=== PATIENT | male | born 1960 | race Caucasian/White ===

== ENCOUNTER → 2022-01-22 08:43 | Outpatient (CLI) | payer OTHER, SELFPAY ==
[2022-01-21 18:26] LABS: Basophils # 0.1 K/mm3 (0-0.2); Basophils % 0.9 % (0.1-2.0); Eosinophils # 0.2 K/mm3 (0.0-0.4); Eosinophils % 1.5 % (0.1-12.0); Hematocrit 41.7 % (42.0-52.0); Hemoglobin 13.5 g/dL (14.1-18.0); Lymphocytes # 1.6 K/mm3 (0.7-4.5); Lymphocytes % 13.9 % (10-50); Mean Corpuscular HGB Conc 32.5 g/dL (31.8-35.4); Mean Corpuscular Hemoglobin 31.5 pg (27.0-31.2); Mean Corpuscular Volume 97.1 fl (80-94); Mean Platelet Volume 9.1 fl (7.4-10.4); Monocytes # 0.9 K/mm3 (0.1-1.0); Neutrophils # 8.6 K/mm3 (1.8-7.8); Neutrophils % 75.7 % (37.0-80.0); Platelet Count 308 K/mm3 (142-424); Red Cell Distribution Width 13.5 % (11.5-17.5); White Blood Count 11.4 K/mm3 (4.8-10.8)
[2022-01-21 18:35] LABS: Chloride 103 mmol/L (98-107); Sodium 140 mmol/L (136-145)
[2022-01-21 18:37] LABS: Blood Urea Nitrogen 16 mg/dl (9-20); Estimated Glomerular Filt Rate 61 ml/min (>60); GFR (African American) 74 ML/MIN (>60); Potassium 4.6 mmoL/L (3.5-5.1)
[2022-01-21 18:38] LABS: Alanine Aminotransferase 21 U/L (12-78); Albumin Level 4.2 g/dl (3.5-5.0); Albumin/Globulin Ratio 1.7 (1.1-1.8); Alkaline Phosphatase 67 U/L (38-126); Anion Gap 11.6 mEq/L (5-15); Aspartate Amino Transferase 31 U/L (17-59); Bilirubin,Total 0.6 mg/dl (0.2-1.3); Carbon Dioxide 30 mmol/L (22.0-30.0); Globulin 2.5 g/dL (1.3-3.2); Total Protein,Serum 6.7 g/dl (6.3-8.2)
[2022-01-21 18:40] LABS: Calcium 9.7 mg/dl (8.4-10.2); Glucose 73 mg/dl (74-100)
== END ==
PROVIDERS: PCP Family Medicine; Visit Provider Family Medicine
DX: H65.02 Acute serous otitis media, left ear (principal)
CPT/HCPCS: 80053; 85025

== ENCOUNTER 2025-05-19 16:35 | Outpatient (CLI) | payer MEDICARE, OTHER, SELFPAY ==
--- OUTSIDE RECORDS SUMMARY | 2025-05-19 16:39 | XMS_ITS | Clinical Summary ---
Author Organization [facility] [place] Address [address] [facility] [address] [place] [address] Phone Care Team Providers Care Housing Case Manager Name Role Phone Carly Tomas Primary Care Provider [phone] Medications sodium,potassiu m,mag sulfates 17.5-3.13-1.6 gram Oral Recon Soln Take 6 oz by mouth 2 times daily. SUPREP Take as prescribed by doctor's office. 354 mL Active Social History Tobacco Use Types Packs/Day Years Used Date Smoking Tobacco: Never Assessed Sex and Gender Information Value Date Recorded Sex Assigned at Not on file Legal Sex Male 4:25 AM EDT Gender Identity Not on file Sexual Orientation Not on file Plan of Treatment Health Maintenance Due Date Last Done Comments Annual Wellness Exam 1961 Hepatitis C Screening 01/28/1976 DTaP/TDaP/Td (1 - Tdap) 1977 Cologuard 2003 FIT 2003 Sigmoidoscopy 2003 Virtual Colonography 2003 Pneumococcal Vaccine 50+ (1 of 1 - PCV) 01/28/2008 Zoster (1 of 2) 01/28/2008 Colon Cancer Screening 05/07/2024 Colonoscopy 05/07/2024 05/07/2021, 11/09/2015 COVID-19 Vaccine (3 - 2024-2 6 season) 2025 10/22/2020, 09/23/2020 Influenza Vaccine (#1) 2025 Hepatitis B Vaccine Aged Out No longe r eligible based on patient's age to complete this topic Meningococcal B Vaccine Aged Out No l onger eligible based on patient's age to complete this topic Procedures Procedure Name Priority Date/Time Associated Diagnosis Comments GMED COLONOSCOPY Routine 05/07/2021 7:00 AM EDT from Last 3 Months or Most Recently Relevant to Health Maintenance Results * GMED COLONOSCOPY (05/07/2021 7:00 AM EDT) 05/07/2021 7:00 AM EDT Impressions [facility] - 05/07/2021 7:37 AM EDT Polyp (10 mm) in the cecum. (Polypectomy). Polyp (8 mm) in the transverse colon. (Polypectomy). Polyp (4 mm) in the sigmoid colon. (Polypectomy). Mild diverticulosis of the sigmoid colon. Internal hemorrhoids. Plan: Await pathology results Colonoscopy in 3 or 5 years depending on pathology results. Educational Handout: Diverticulosis Patient to follow-up with Primary Care Physician and/or Referring Physician This section is an excerpt of the full report. us Petty Lanza MD GI PROCEDURE ORDERAB LES Final Result Performing Organization Address City/State/[facility] Co de Phone Number [facility] [address] [place] [address] from Last 3 Months or Most Recently Relevant to Health Maintenance Insurance PPO RICHARD PPO Care Teams Housing Case Manager Relationship Specialty Start Date End Date Carly Tomas [address] [facility] [address] [place] [address] PCP - General Family Medicine 11/09/15
--- OUTSIDE RECORDS SUMMARY | 2025-05-19 16:39 | XMS_ITS | Encounter Summary ---
Author Organization [place] [address] Care Team Providers Care Batter Out Name Role Phone Carly Tomas Primary Care Provider [phone] Encounter Details Date Type Department Care Team (Late st Contact Info) Description 05/07/2021 Orders Only SEP Gastro [facility] [address] [facility] [address] [place] [address] Petty Lanza MD [address] [place] [id number] Social History Tobacco Use Types Packs/Day Years Used Date Smoking Tobacco: Never Assessed Sex and Gender Information Value Date Recorded Sex Assigned at Not on file Legal Sex Male 4:25 AM EDT Gender Identity Not on file Sexual Orientation Not on file documented as of this encounter Plan of Treatment Not on file documented as of this encounter Procedures Procedure Name Priority Date/Time Associated Diagnosis Comments GMED COLONOSCOPY Routine 05/07/2021 7:00 AM EDT documented in this encounter Results * GMED COLONOSCOPY (05/07/2021 7:00 AM EDT) 05/07/2021 7:00 AM EDT Impressions [facility] - 05/07/2021 7:37 AM EDT [...] ORDERAB LES Final Result Performing Organization Address City/State/[facility] Co de Phone Number [facility] 1 [place] [address] documented in this encounter Visit Diagnoses Not on filedocumented in this encounter Care Teams Batter Out Relationship Specialty Start Date End Date Carly Tomas [address] [facility] [address] [place] [address] PCP - General Family Medicine 11/09/15 documented as of this encounter
--- OUTSIDE RECORDS SUMMARY | 2025-05-19 16:39 | XMS_ITS | Encounter Summary ---
Author Organization [place] [address] Care Team Providers Care Customer Service Representative Teller Name Role Phone Carly Tomas Primary Care Provider [phone] Encounter Details Date Type Department Care Team (Late st Contact Info) Description 11/09/2015 Orders [address]P [address] [facility] [address] [facility] [address] [place] [address] Kwaku Rogers DO [address] [facility] [address] [place] [address] Social History Tobacco Use Types Packs/Day Years [...] Date/Time Associated Diagnosis Comments GMED COLONOSCOPY Routine 11/09/2015 7:30 AM EDT documented in this encounter Results * GMED COLONOSCOPY (11/09/2015 7:30 AM EDT) 11/09/2015 7:30 AM EDT Impressions [facility] - 11/09/2015 7:56 AM EDT Normal mucosa in the terminal ileum. Polyp (1.2 cm) in the cecum. (Polypectomy). Polyp in the sigmoid colon. (Polypectomy). Hemorrhoids. Plan: Colonoscopy in 3 years. This section is an excerpt of the full report. us Kwaku Rogers DO GI PROCEDURE ORDERABLES F inal Result [facility] 1 [place] [address] documented in this encounter Visit Diagnoses Not on filedocumented in this encounter Care Teams Customer Service Representative Teller Relationship Specialty Start Date End Date Carly Tomas [address] [facility] [address] [place] [id number] PCP - General Family Medicine 11/09/15 documented as of this encounter
--- OUTSIDE RECORDS SUMMARY | 2025-05-19 16:39 | XMS_ITS | Encounter Summary ---
Author Organization [place] [address] Care Team Providers Care Outpatient Coding Specialist Name Role Phone Carly Tomas Primary Care Provider [phone] Encounter Details Date Type Department Care Team (Late st Contact Info) Description 05/07/2021 Lab Requisition [facility] [place] [address] Petty Lanza MD [address] [place] [address] Personal history of colonic polyps; Polyp of colon; Diverticulosis of large intestine without perforation or abscess without bleeding Social History Tobacco Use Types Packs/Day Years Used Date Smoking Tobacco: Never Assessed Sex and Gender Information Value Date Recorded Sex Assigned at Not on file Legal Sex Male 4:25 AM EDT Gender Identity Not on file Sexual Orientation Not on file documented as of this encounter Progress Notes * Petty Lanza MD - 05/07/2021 3:18 PM EDT Please inform the patient that all the removed polyps were precancerous but NO cancer was seen in any of the polyp. Repeat colonoscopy in 3 years. documented in this encounter Plan of Treatment Not on file documented as of this encounter Procedures Procedure Name Priority Date/Time Associated Diagnosis Comments PATHOLOGY TISSUE REQUEST Routine 05/07/2021 7:37 AM EDT Personal history of colonic polyps Polyp of colon Diverticulosis of large intestine without perforation or abscess without bleeding documented in this encounter Results * PATHOLOGY TISSUE REQUEST (05/07/2021 7:37 AM EDT) CASE REPORT Surgical Pathology Case: [id number] Authorizing Provider: Petty Lanza, Collected: 05/07/2021 0737 Ordering [facility]: [facility] Received: 05/07/2021 1745 Pathologist: Munir Eaton MD Specimens: A) - Large Intestine, Cecum B) - Large Intestine, Transverse Colon C) - Large Intestine, Sigmoid Colon 05/15/2021 1:51 PM EDT [facility] FINAL DIAGNOSIS A. Cecum, polyp, biopsy: - Fragments of sessile serrated adenoma B. Transverse colon, polyp, biopsy: - Fragments of sessile serrated adenoma. C. Sigmoid colon, polyp, biopsy: - Tubular adenoma. 05/15/2021 1:51 PM EDT [facility] at 1351 EDT COMMENT Additional deeper level sections are performed and evaluated on Part C. 05/15/2021 1:51 PM EDT [facility] GROSS DESCRIPTION A. Part A is received in formalin, labeled with the patient's name, medical record number, and #1) cecal polyps . It consists of three qureshi tissue fragments, ranging from 0.4-0.9 cm. The specimen is submitted in toto in cassettes A1. CHIKIS Peralta PA (ASC) 05/07/2021 5:04 PM B. Part B is received in formalin, labeled with the patient's name, medical record number, and #2) transverse polyp colon . It consists of four qureshi tissue fragments, ranging from 0.4-0.6 cm. The specimen is submitted in toto in cassette B1. CHIKIS Peralta PA (ASCP) 05/07/2021 5:04 PM C. Part C is received in formalin, labeled with the patient's name, medical record number, and #3) sigmoid colon polyp . It consists of a single qureshi tissue fragment, measuring 0.3 cm. The specimen is submitted in toto in cassette C1. CHIKIS Peralta PA (ASCP) 05/07/2021 5:04 PM 05/15/2021 1:51 PM EDT [facility] MICROSCOPIC DESCRIPTION Microscopic examination is performed and the findings corroborate the diagnosis. 05/15/2021 1:51 PM EDT [facility] EMBEDDED IMAGES 05/15/2021 1:51 PM EDT [facility] Tissue SIGMOID COLON STRUCTURE / Unknown 05/07/2021 7:37 AM EDT 05/07/2021 4:56 PM EDT Tissue specimen (specimen) TRANSVERSE COLON STRUCTURE / Unknown 05/07/2021 7:37 AM EDT 05/07/2021 4:56 PM EDT Tissue specimen (specimen) SIGMOID COLON STRUCTURE / Unknown 05/07/2021 7:37 AM EDT 05/07/2021 4:56 PM EDT us Petty Lanza MD PATHOLOGY ORDERABLES Final Result [facility] [address] [facility] [place] [address] documented in this encounter Visit Diagnoses Diagnosis Personal history of colonic polyps Polyp of colon Benign neoplasm of colon Diverticulosis of large intestine without perforation or abscess without bleeding Diverticulosis of colon (without mention of hemorrhage) documented in this encounter Care Teams Outpatient Coding Specialist Relationship Specialty Start Date End Date Carly Tomas [address] [place] [address] PCP - General Family Medicine 11/09/15 documented as of this encounter
--- NOTE | 2025-05-19 17:09 | XR_ITS ---
PROCEDURE INFORMATION: Exam: XR Chest Exam date and time: 05/19/2025 5:10 PM Age: 65 years old Clinical indication: Shortness of breath; Additional info: Soboe, abnormal ekg TECHNIQUE: Imaging protocol: Radiologic exam of the chest. Views: 2 views. COMPARISON: No relevant prior studies available. FINDINGS: Lungs: Stigmata of old granulomatous disease. Pleural spaces: Unremarkable. No pleural effusion. No pneumothorax. Heart/Mediastinum: Unremarkable. No cardiomegaly. Bones/joints: Unremarkable. IMPRESSION: No acute findings.
[2025-05-19 17:36] LABS: Hematocrit 39.4 % (42.0-52.0); Hemoglobin 13.4 g/dL (14.1-18.0); Immature Granulocytes % 0.1 %; Mean Corpuscular HGB Conc 34.0 g/dL (31.8-35.4); Mean Corpuscular Hemoglobin 31.2 pg (27.0-31.2); Mean Corpuscular Volume 91.8 fl (80-94); Nucleated Red Blood Cells % 0 %; Platelet Count 277 K/mm3 (142-424); Red Blood Count 4.29 M/mm3 (4.60-6.20); Red Cell Distribution Width-SD 45.8 fL; White Blood Count 8.1 K/mm3 (4.8-10.8)
[2025-05-19 18:28] LABS: Alanine Aminotransferase 22 U/L (12-78); Albumin Level 4.3 g/dl (3.5-5.0); Albumin/Globulin Ratio 1.5 (1.1-1.8); Alkaline Phosphatase 59 U/L (38-126); Anion Gap 9.6 mEq/L (5-15); Aspartate Amino Transferase 31 U/L (17-59); Bilirubin,Total 0.7 mg/dl (0.2-1.3); Blood Urea Nitrogen 13 mg/dl (9-20); Calcium 9.7 mg/dl (8.4-10.2); Carbon Dioxide 30 mmol/L (22.0-30.0); Chloride 104 mmol/L (98-107); Creatinine,Serum 1.10 mg/dl (0.66-1.25); Estimated Glomerular Filt Rate 67 ml/min (>60); GFR (African American) 81 ML/MIN (>60); Globulin 2.9 g/dL (1.3-3.2); Glucose 77 mg/dl (74-100); Potassium 4.6 mmoL/L (3.5-5.1); Sodium 139 mmol/L (136-145); Total Protein,Serum 7.2 g/dl (6.3-8.2)
[2025-05-19 18:33] LABS: NT Pro Brain Natriuretic Pep. 50.6 pg/mL (0-125)
[2025-05-19 18:54] LABS: Thyroid Stimulating Hormone 1.55 uIU/mL (0.465-4.68)
== END 2025-05-19 23:59 | disposition home or self-care (01) ==
LOC: LAB 16:37
PROVIDERS: PCP Family Medicine; Visit Provider Nurse Practitioner
DX: R06.02 Shortness of breath (principal); R42 Dizziness and giddiness; R53.83 Other fatigue; Z12.5 Encounter for screening for malignant neoplasm of prostate; R94.31 Abnormal electrocardiogram [ECG] [EKG]
CPT/HCPCS: 36415; 71046; 80053; 83880; 84443; 85025; G0103

== ENCOUNTER 2025-05-20 13:03 | Outpatient (CLI) | payer MEDICARE, OTHER, SELFPAY ==
--- OUTSIDE RECORDS SUMMARY | 2025-05-20 13:08 | XMS_ITS | Encounter Summary ---
Author Organization [place] [address] Care Team Providers Care Tests Superintendent Name Role Phone Carly Tomas Primary Care Provider [phone] Encounter Details Date Type Department Care Team (Late st Contact Info) Description 11/09/2015 Orders Only SEP Gastro [facility] [address] [facility] [address] [place] [address] Kwaku Rogers DO [address] [facility] [address] [place] [address] Social History Tobacco Use Types Packs/Day Years [...] AM EDT) 11/09/2015 7:30 AM EDT Impressions [facility] - 11/09/2015 7:56 AM EDT Normal mucosa in the terminal ileum. Polyp (1.2 cm) in the cecum. (Polypectomy). Polyp in the sigmoid colon. (Polypectomy). Hemorrhoids. Plan: Colonoscopy in 3 years. This section is an excerpt of the full report. us Kwaku Rogers DO GI PROCEDURE ORDERABLES F inal Result [facility] 1 [place] [address] documented in this encounter Visit Diagnoses Not on filedocumented in this encounter Care Teams Tests Superintendent Relationship Specialty Start Date End Date Carly Tomas [address] [facility] [address] [place] [id number] PCP - General Family Medicine 11/09/15 documented as of this encounter
--- OUTSIDE RECORDS SUMMARY | 2025-05-20 13:08 | XMS_ITS | Encounter Summary ---
Author Organization [place] [address] Care Team Providers Care Class A Truck Driver Name Role Phone Carly Tomas Primary Care Provider [phone] Encounter Details Date Type Department Care Team (Late st Contact Info) Description 05/07/2021 Lab Requisition [facility] [place] [address] Petty Lanza MD [address] [place] [address] Personal history of colonic polyps; [...] AM EDT) CASE REPORT Surgical Pathology Case: [id number] Authorizing Provider: Petty Lanza, Collected: 05/07/2021 0737 Ordering Location: [facility] Received: 05/07/2021 9732 Pathologist: Munir Eaton MD Specimens: A) - Large Intestine, Cecum B) - Large Intestine, Transverse Colon C) - Large Intestine, Sigmoid Colon 05/15/2021 1:51 PM EDT [facility] FINAL DIAGNOSIS A. Cecum, polyp, biopsy: - Fragments of sessile serrated adenoma B. Transverse colon, polyp, biopsy: - Fragments of sessile serrated adenoma. C. Sigmoid colon, polyp, biopsy: - Tubular adenoma. 05/15/2021 1:51 PM EDT [facility] at 1351 EDT COMMENT Additional deeper level sections are performed and evaluated on Part C. 05/15/2021 1:51 PM EDT [facility] GROSS DESCRIPTION A. Part A is [...] 05/07/2021 5:04 PM 05/15/2021 1:51 PM EDT [facility] MICROSCOPIC DESCRIPTION Microscopic examination is performed and the findings corroborate the diagnosis. 05/15/2021 1:51 PM EDT [facility] EMBEDDED IMAGES 05/15/2021 1:51 PM EDT [facility] Tissue SIGMOID COLON STRUCTURE / Unknown 05/07/2021 7:37 AM EDT 05/07/2021 4:56 PM EDT Tissue specimen (specimen) TRANSVERSE COLON STRUCTURE / Unknown 05/07/2021 7:37 AM EDT 05/07/2021 4:56 PM EDT Tissue specimen (specimen) SIGMOID COLON STRUCTURE / Unknown 05/07/2021 7:37 AM EDT 05/07/2021 4:56 PM EDT us Petty Lanza MD PATHOLOGY ORDERABLES Final Result [facility] [address] [place] [address] documented in this encounter Visit Diagnoses Diagnosis Personal history of colonic polyps Polyp of colon Benign neoplasm of colon Diverticulosis of large intestine without perforation or abscess without bleeding Diverticulosis of colon (without mention of hemorrhage) documented in this encounter Care Teams Class A Truck Driver Relationship Specialty Start Date End Date Carly Tomas [address] [address] [place] [address] PCP - General Family Medicine 11/09/15 documented as of this encounter
--- OUTSIDE RECORDS SUMMARY | 2025-05-20 13:08 | XMS_ITS | Encounter Summary ---
Author Organization [place] [address] Care Team Providers Care Medical Specialist Name Role Phone Carly Tomas Primary Care Provider [phone] Encounter Details Date Type Department Care Team (Late st Contact Info) Description 05/07/2021 Orders Only SEP Gastro [facility] [address] [facility] [address] [place] [address] Petty Lanza MD [address] [place] [id number] Social History Tobacco Use Types Packs/Day Years [...] AM EDT) 05/07/2021 7:00 AM EDT Impressions [facility] - 05/07/2021 7:37 AM EDT Polyp [...] ORDERAB LES Final Result Performing Organization Address City/State/[facility] Co de Phone Number [facility] 1 [place] [address] documented in this encounter Visit Diagnoses Not on filedocumented in this encounter Care Teams Medical Specialist Relationship Specialty Start Date End Date Carly Tomas [address] [facility] [address] [place] [address] PCP - General Family Medicine 11/09/15 documented as of this encounter
--- OUTSIDE RECORDS SUMMARY | 2025-05-20 13:08 | XMS_ITS | Clinical Summary ---
Author Organization [facility] [place] Address [address] [facility] [address] [place] [address] Phone Care Team Providers Care Primary Special Educator Name Role Phone Carly Tomas Primary Care Provider [phone] Medications sodium,potassiu m,mag sulfates 17.5-3.13-1.6 gram Oral [...] AM EDT) 05/07/2021 7:00 AM EDT Impressions [facility] - 05/07/2021 7:37 AM [...] ORDERAB LES Final Result Performing Organization Address City/State/[facility] Co de Phone Number [facility] 1 [place] [address] from Last 3 Months or Most Recently Relevant to Health Maintenance Insurance PPO RICHARD PPO Care Teams Primary Special Educator Relationship Specialty Start Date End Date Carly Tomas [address] [facility] [address] [place] [address] PCP - General Family Medicine 11/09/15
[2025-05-20 13:09] LABS: Microscopic, Urine URINE MICROSCOPIC (MICROSCOPIC)
[2025-05-20 13:24] LABS: Bilirubin,Urine Negative (Negative); Color,Urine YELLOW (Yellow); Glucose,Urine (UA) Negative (Negative); Ketones,Urine TRACE (Negative); Leukocyte Esterase,Urine Negative (Negative); PH,Urine 6.0 (5.0-8.5); Protein,Urine Negative (Negative); Specific Gravity, Urine 1.025 (1.005-1.030); Urobilinogen,Urine 0.2 EU/dl (0.2)
[2025-05-20 14:03] LABS: Squamous Epithelial Cell,Urine Occasional #/hpf (0-5); WBC,Urine Occasional #/hpf (0-3)
--- NOTE | 2025-05-20 14:10 | ECG_ITS ---
APPROVED REPORT Exam: Resting ECG HR:65 bpm ECG Measurements Heart Rate 65 AXES WA 177 P 62 QRSd 164 QRS 192 QT 435 T 46 QTc 447 Conclusion SINUS RHYTHM INDETERMINATE AXIS RIGHT BUNDLE BRANCH BLOCK [120+ ms QRS DURATION, UPRIGHT V1, 40+ ms S IN I/aVL/V4/V5/V6] ABNORMAL ECG UNCONFIRMED REPORT Electronically signed by : Erik Dewitt MD 05/21/2025 07:54:03
== END 2025-05-20 23:59 | disposition home or self-care (01) ==
LOC: RT 13:05
PROVIDERS: PCP Family Medicine; Visit Provider Nurse Practitioner
DX: I45.10 Unspecified right bundle-branch block (principal); R94.31 Abnormal electrocardiogram [ECG] [EKG]; R42 Dizziness and giddiness; R53.83 Other fatigue; R06.02 Shortness of breath; Z12.5 Encounter for screening for malignant neoplasm of prostate
CPT/HCPCS: 81001; 93005

== ENCOUNTER 2025-05-21 14:17 | Outpatient (CLI) | payer MEDICARE, OTHER, SELFPAY ==
--- OUTSIDE RECORDS SUMMARY | 2025-05-21 14:27 | XMS_ITS | Clinical Summary ---
Author Organization [facility] [place] Address [address] [facility] [address] [place] [address] Phone Care Team Providers Care Tube Machine Operator Helper Name Role Phone Carly Tomas Primary Care Provider [phone] Medications sodium,potassiu m,mag sulfates 17.5-3.13-1.6 gram Oral [...] EDT) 05/07/2021 7:00 AM EDT Impressions [facility] - 05/07/2021 7:37 AM EDT [...] ORDERAB LES Final Result Performing Organization Address City/State/[facility] Co de Phone Number [facility] 1 [place] [address] from Last 3 Months or Most Recently Relevant to Health Maintenance Insurance PPO RICHARD PPO Care Teams Tube Machine Operator Helper Relationship Specialty Start Date End Date Carly Tomas [address] [facility] [address] [place] [address] PCP - General Family Medicine 11/09/15
--- OUTSIDE RECORDS SUMMARY | 2025-05-21 14:27 | XMS_ITS | Encounter Summary ---
Author Organization [place] [address] Care Team Providers Care Rooms Director Name Role Phone Carly Tomas Primary Care Provider [phone] Encounter Details Date Type Department Care Team (Late st Contact Info) Description 11/09/2015 Orders Only SEP Gastro [facility] [address] [facility] [address] [place] [address] Kwaku Rogers DO [address] [facility] [address] [place] [address] Social History Tobacco Use Types Packs/Day Years [...] AM EDT) 11/09/2015 7:30 AM EDT Impressions [facility] - 11/09/2015 7:56 AM EDT Normal mucosa in the terminal ileum. Polyp (1.2 cm) in the cecum. (Polypectomy). Polyp in the sigmoid colon. (Polypectomy). Hemorrhoids. Plan: Colonoscopy in 3 years. This section is an excerpt of the full report. us Kwaku Rogers DO GI PROCEDURE ORDERABLES F inal Result [facility] 1 [place] [address] documented in this encounter Visit Diagnoses Not on filedocumented in this encounter Care Teams Rooms Director Relationship Specialty Start Date End Date Carly Tomas [address] [facility] [address] [place] [phone] PCP - General Family Medicine 11/09/15 documented as of this encounter
--- OUTSIDE RECORDS SUMMARY | 2025-05-21 14:28 | XMS_ITS | Encounter Summary ---
Author Organization [place] [address] Care Team Providers Care Bone Puller Name Role Phone Carly Tomas Primary Care Provider [phone] Encounter Details Date Type Department Care Team (Late st Contact Info) Description 05/07/2021 Lab Requisition [facility] [place] [address] Petty Lanza MD [address] [place] [address] Personal history of colonic polyps; [...] AM EDT) CASE REPORT Surgical Pathology Case: [id number] Authorizing Provider: Petty Lanza, Collected: 05/07/2021 0737 Ordering [facility]: [facility] Received: 05/07/2021 9976 Pathologist: Munir Eaotn MD Specimens: A) - Large Intestine, Cecum B) - Large Intestine, Transverse Colon C) - Large Intestine, Sigmoid Colon 05/15/2021 1:51 PM EDT [facility] FINAL DIAGNOSIS A. Cecum, polyp, biopsy: - Fragments of sessile serrated adenoma B. Transverse colon, polyp, biopsy: - Fragments of sessile serrated adenoma. C. Sigmoid colon, polyp, biopsy: - Tubular adenoma. 05/15/2021 1:51 PM EDT [facility] at 1351 EDT COMMENT Additional deeper level sections are performed and evaluated on Part C. 05/15/2021 1:51 PM EDT [facility] GROSS DESCRIPTION A. Part A is [...] 05/07/2021 5:04 PM 05/15/2021 1:51 PM EDT [facility] MICROSCOPIC DESCRIPTION Microscopic examination is performed and the findings corroborate the diagnosis. 05/15/2021 1:51 PM EDT [facility] EMBEDDED IMAGES 05/15/2021 1:51 PM EDT [facility] Tissue SIGMOID COLON STRUCTURE / Unknown 05/07/2021 7:37 AM EDT 05/07/2021 4:56 PM EDT Tissue specimen (specimen) TRANSVERSE COLON STRUCTURE / Unknown 05/07/2021 7:37 AM EDT 05/07/2021 4:56 PM EDT Tissue specimen (specimen) SIGMOID COLON STRUCTURE / Unknown 05/07/2021 7:37 AM EDT 05/07/2021 4:56 PM EDT us Petty Lanza MD PATHOLOGY ORDERABLES Final Result [facility] [address] [place] [id number] documented in this encounter Visit Diagnoses Diagnosis Personal history of colonic polyps Polyp of colon Benign neoplasm of colon Diverticulosis of large intestine without perforation or abscess without bleeding Diverticulosis of colon (without mention of hemorrhage) documented in this encounter Care Teams Bone Puller Relationship Specialty Start Date End Date Carly Tomas [id number] [place] [address] PCP - General Family Medicine 11/09/15 documented as of this encounter
--- OUTSIDE RECORDS SUMMARY | 2025-05-21 14:28 | XMS_ITS | Data Portability ---
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 02/2019 CBCm, CMP, TSH -- all normal (glu 110, non-fasting), B12 440. vit D 51 02/13/18 CBC, LFTs wnl [email or web address] Not available 08/17/2020 09:25:36 12/13/2021 12/13/2021 1. Mild essential tremor, stable. 2. Mild cognitive impairment? He scores normally on MMSE but he and his have noticed change in short-term memory over the past 6-8 mos Will continue same primidone. For #2 will check B12, TSH, and arrange for brain MRI. f/u few mos for re-evaluation encouraged regular mental, physical, social activity. [email or web address] Not available 12/13/2021 15:40:41 07/20/2022 07/20/2022 Essential tremor, stable. Will continue primidone. There was question of MCI last time, but if anything he feels his memory is better. It is possible that untreated SOLOMON could be contributing; he did not tolerate CPAP. Will have f/u one year [email or web address] Not available 07/20/2022 10:56:28 07/20/2023 07/20/2023 Essential tremor, very stable. Same primidone. f/u 1.5 years or sooner if needed. [email or web address] Not available 07/20/2023 11:03:07 01/17/2025 01/17/2025 Essential tremor, very stable. Same primidone. He has had no labs in four years. I will check CMP and CBC. Does not routinely see PCP; I suggested he do this annually for checkup. f/u 1.5 years or sooner if needed. [email or web address] Not available 01/17/2025 10:03:32 Plan of Treatment Reminders Order Date Submit Date Provider Last Modified By Organization Details Last Modified Time Details Appointments NEUROLOG Y RECHECK 2026 09:45A Silvia BEAR MD Not available Not available Not available Lab CMP, serum or plasma 2024 025 [facility], [address] [place] [address], [address], 01/17/2025 11:10:15 CBC w/ auto diff 2024 025 [facility], [address] [place] [address], [address], 01/17/2025 10:51:39 vitamin B12, serum 2021 022 [facility], [address] [place] [address], [address], 12/13/2021 13:59:00 TSH, serum or plasma 2021 022 [facility], [address] [place] [address], [address], 12/13/2021 13:51:29 CBC w/ auto diff 2020 021 [facility], [address] [place] [address], [address], 08/27/2020 08:42:57 CMP, serum or plasma 2020 021 [facility], [address] [place], [address], 08/27/2020 08:57:36 Referral None recorded . Procedures None recorded . Surgeries None recorded . Imaging MRI, brain, w/wo contrast [address] [facility], [address] [place], [address], 12/20/2021 16:34:32 Medication Orders primidon e 50 mg tablet 2024 025 [facility], [address] [facility] [place], [address], 01/17/2025 10:30:29 primidon e 50 mg tablet 2023 024 [facility], [address] [facility] [place], [address], 07/20/2023 11:03:35 primidon e 50 mg tablet 2021 022 [facility], [address] [facility] [place], [address], 07/08/2022 11:12:23 primidon e 50 mg tablet 2020 021 [facility], [address] [facility] [place], [address], 08/17/2020 10:08:04 Patient TargetsNo targets recorded. Patient Instructions Encounter Date Encounter Id Patient Instructions Last Modified By Organization Details Last Modified Time 12/13/2021 [id number] I spent 5-10 minutes reviewing records, 30+ minutes with pt, 5-10 minutes typing this. [email or web address] Not available 12/13/2021 15:40:59 Reason for Referral None Reported. Results Created Date Observation Date Name Description Value Unit Range Abnormal Flag Note LastModifiedBy Organization Detail LastModifiedTime 08/27/19 21 08/27/2020 CBC w/ auto diff white blood cells 6.3 K/uL 3.8-10 .8 normal Not Available [facility] [address] [place] [address], [address], 08/27/2020 08:42:57 08/27/19 21 08/27/2020 CBC w/ auto diff red blood cells 4.70 M/uL 4.20-5 .80 normal Not Available [facility] [address] [place] [address], [address], 08/27/2020 08:42:57 08/27/19 21 08/27/2020 CBC w/ auto diff hemoglobin 14.2 g/dL 14.0-1 8.0 normal Not Available [facility] [address] [place] [address], [address], 08/27/2020 08:42:57 08/27/19 21 08/27/2020 CBC w/ auto diff hematocrit 42.8 % 40.0-5 2.0 normal Not Available [facility] [address] [place] [address], [address], 08/27/2020 08:42:57 08/27/19 21 08/27/2020 CBC w/ auto diff MCV 91 fL 80-100 normal Not Available [facility] [address] [place] [address], [address], 08/27/2020 08:42:57 08/27/19 21 08/27/2020 CBC w/ auto diff MCH 30 pg 26-35 normal Not Available [facility] [address] [place] [address], [address], 08/27/2020 08:42:57 08/27/19 21 08/27/2020 CBC w/ auto diff MCHC 33 g/dL 32-36 normal Not Available [facility] [address] [place] [address], [address], 08/27/2020 08:42:57 08/27/19 21 08/27/2020 CBC w/ auto diff RDW 13.4 % 11.0-1 5.0 normal Not Available [facility] [address] [place] [address], [address], 08/27/2020 08:42:57 08/27/19 21 08/27/2020 CBC w/ auto diff MPV 7.7 fL 6.2-10 .5 normal Not Available [facility] [address] [place] [address], [address], 08/27/2020 08:42:57 08/27/19 21 08/27/2020 CBC w/ auto diff platelet count 272 K/uL 130-40 0 normal Not Available [facility] [address] [place] [address], [address], 08/27/2020 08:42:57 08/27/19 21 08/27/2020 CBC w/ auto diff neutrophil,a bsolute 3.8 K/uL 1.6-8. 4 normal Not Available [facility] [address] [place] [address], [address], 08/27/2020 08:42:57 08/27/19 21 08/27/2020 CBC w/ auto diff lymphocyte,a bsolute 1.6 K/uL 0.4-5. 1 normal Not Available [facility] [address] [place] [address], [address], 08/27/2020 08:42:57 08/27/19 21 08/27/2020 CBC w/ auto diff monocyte,abs olute 0.7 K/uL 0.0-1. 2 normal Not Available [facility] [address] [place] [address], [address], 08/27/2020 08:42:57 08/27/19 21 08/27/2020 CBC w/ auto diff eosinophil,a bsolute 0.2 K/uL 0.0-0. 8 normal Not Available [facility] [address] [place] [address], [address], 08/27/2020 08:42:57 08/27/19 21 08/27/2020 CBC w/ auto diff basophil,abs olute 0.0 K/uL 0.0-0. 3 normal Not Available [facility] [address] [place] [address], [address], 08/27/2020 08:42:57 08/27/19 21 08/27/2020 CBC w/ auto diff % neutrophils 59.8 % 42.0-7 8.0 normal Not Available [facility] [address] [place] [address], [address], 08/27/2020 08:42:57 08/27/19 21 08/27/2020 CBC w/ auto diff % lymphocytes 25.4 % 11.0-4 7.0 normal Not Available [facility] [address] [place] [address], [address], 08/27/2020 08:42:57 08/27/19 21 08/27/2020 CBC w/ auto diff % monocytes 11.3 % 0.0-11 .0 high Not Available [facility] [address] [place] [address], [address], 08/27/2020 08:42:57 08/27/19 21 08/27/2020 CBC w/ auto diff % eosinophils 3.0 % 0.0-7. 0 normal Not Available [facility] [address] [place] [address], [address], 08/27/2020 08:42:57 08/27/19 21 08/27/2020 CBC w/ auto diff % basophils 0.5 % 0.0-3. 0 normal Not Available [facility] [address] [place] [address], [address], 08/27/2020 08:42:57 08/27/19 21 08/27/2020 CBC w/ auto diff nucleated red cells 0.0 % 0.0-0. 9 normal Not Available [facility] [address] [place] [address], [address], 08/27/2020 08:42:57 08/27/19 21 08/27/2020 CBC w/ auto diff nucleated RBCs, absolute 0.00 K/uL not estab. normal Not Available [facility] [address] [place] [address], [address], 08/27/2020 08:42:57 08/27/19 21 08/27/2020 CMP, serum or plasm a glucose 114 mg/dL 74-100 high Not Available [facility] [address] [place] [address], [address], 08/27/2020 08:57:36 08/27/19 21 08/27/2020 CMP, serum or plasm a blood urea nitrogen 11 mg/dL 6-20 normal Not Available [facility] [address] [place] [address], [address], 08/27/2020 08:57:36 08/27/19 21 08/27/2020 CMP, serum or plasm a creatinine 1.06 mg/dL 0.70-1 .25 normal Not Available [facility] [address] [place] [address], [address], 08/27/2020 08:57:36 08/27/1908/27/2020 CMP, serum or plasm a BUN/creatini ne ratio 10 (calc ) 10-20 normal Not Available [facility] [address] [place] [address], [address], 08/27/2020 08:57:36 08/27/19 21 08/27/2020 CMP, serum or plasm a sodium 140 mmol/ L 136-14 5 normal Not Available [facility] [address] [place] [address], [address], 08/27/2020 08:57:36 08/27/19 21 08/27/2020 CMP, serum or plasm a potassium 4.3 mmol/ L 3.4-5. 0 normal Not Available [facility] [address] [place] [address], [address], 08/27/2020 08:57:36 08/27/19 21 08/27/2020 CMP, serum or plasm a chloride 102 mmol/ L 98-107 normal Not Available [facility] [address] [place] [address], [address], 08/27/2020 08:57:36 08/27/19 21 08/27/2020 CMP, serum or plasm a carbon dioxide 27 mmol/ L 20-32 normal Not Available [facility] [address] [place] [address], [address], 08/27/2020 08:57:36 08/27/19 21 08/27/2020 CMP, serum or plasm a anion gap 11 (calc ) 7-25 normal Not Available [facility] [address] [place] [address], [address], 08/27/2020 08:57:36 08/27/19 21 08/27/2020 CMP, serum or plasm a calcium 9.3 mg/dL 8.6-10 .2 normal Not Available [facility] [address] [place] [address], [address], 08/27/2020 08:57:36 08/27/19 21 08/27/2020 CMP, serum or plasm a total protein 7.0 g/dL 6.4-8. 3 normal Not Available [facility] [address] [place] [address], [address], 08/27/2020 08:57:36 08/27/19 21 08/27/2020 CMP, serum or plasm a albumin 4.4 g/dL 3.5-5. 2 normal Not Available [facility] [address] [place] [address], [address], 08/27/2020 08:57:36 08/27/19 21 08/27/2020 CMP, serum or plasm a globulin 2.6 g/dL_ (calc ) 1.5-4. 5 normal Not Available [facility] [address] [place] [address], [address], 08/27/2020 08:57:36 08/27/19 21 08/27/2020 CMP, serum or plasm a albumin/glob ulin ratio 1.7 (calc ) 1.1-2. 5 normal Not Available [facility] [address] [place] [address], [address], 08/27/2020 08:57:36 08/27/19 21 08/27/2020 CMP, serum or plasm a bilirubin, total 0.6 mg/dL 0.1-1. 2 normal Not Available [facility] [address] [place] [address], [address], 08/27/2020 08:57:36 08/27/19 21 08/27/2020 CMP, serum or plasm a alkaline phosphatase 55 U/L 40-130 normal Not Available [facility] [address] [place] [address], [address], 08/27/2020 08:57:36 08/27/1908/27/2020 CMP, serum or plasm a AST 16 U/L 0-40 normal Not Available [facility] [address] [place] [address], [address], 08/27/2020 08:57:36 08/27/1908/27/2020 CMP, serum or plasm a ALT 17 U/L 0-41 normal Not Available [facility] [address] [place] [address], [address], 08/27/2020 08:57:36 08/27/19 21 08/27/2020 CMP, serum or plasm a GFR 86 >= 60 normal Not Available [facility] [address] [place] [address], [address], 08/27/2020 08:57:36 08/27/19 21 08/27/2020 CMP, serum or plasm a GFR non- 75 >= 60 normal NOT E NEW calcu latio n for GFR is based on the Natio nal Kidne y Found ation CKD-E PI equat ion and allow s for repor ting GFR value s great er than 60 mL/mi n/1.7 3 m2. This calcu latio n has not been valid ated for patie nts less than 18 yrs., pregn ant women and Hispa nics. Chron ic kidne y disea se is defin ed as kidne y damag e or GFR less than 60 mL/mi n/1.7 3 m2 for 3 month s or longe r. Not Available [facility] [address] [place] [address], [address], 08/27/2020 08:57:36 12/14/19 22 12/13/2021 TSH TSH 1.340 uIU/m L 0.270- 4.200 normal Not Available [facility] [address] [place] [address], [address], 12/13/2021 13:51:29 12/14/19 22 12/13/2021 VITAM IN B12 vitamin B12 476 pg/mL 232-12 45 normal Not Available [facility] [address] [place] [address], [address], 12/13/2021 13:59:00 01/18/20 25 01/17/2025 COMPL ETE BLOOD COUNT white blood cells 5.8 10*3/ uL 3.8-10 .8 normal Not Available [facility] [address] [place] [address], [address], 01/17/2025 10:51:39 01/18/20 25 01/17/2025 COMPL ETE BLOOD COUNT red blood cells 4.36 10*6/ uL 4.20-5 .80 normal Not Available [facility] [address] [place] [address], [address], 01/17/2025 10:51:39 01/18/20 25 01/17/2025 COMPL ETE BLOOD COUNT hemoglobin 13.5 g/dL 14.0-1 8.0 low Not Available [facility] [address] [place] [address], [address], 01/17/2025 10:51:39 01/18/20 25 01/17/2025 COMPL ETE BLOOD COUNT hematocrit 39.3 % 40.0-5 2.0 low Not Available [facility] [address] [place] [address], [address], 01/17/2025 10:51:39 01/18/20 25 01/17/2025 COMPL ETE BLOOD COUNT MCV 90 fL 80-100 normal Not Available [facility] [address] [place] [address], [address], 01/17/2025 10:51:39 01/18/20 25 01/17/2025 COMPL ETE BLOOD COUNT MCH 31 pg 26-35 normal Not Available [facility] [address] [place] [address], [address], 01/17/2025 10:51:39 01/18/20 25 01/17/2025 COMPL ETE BLOOD COUNT MCHC 34 g/dL 32-36 normal Not Available [facility] [address] [place] [address], [address], 01/17/2025 10:51:39 01/18/20 25 01/17/2025 COMPL ETE BLOOD COUNT RDW 13.9 % 11.0-1 5.0 normal Not Available [facility] [address] [place] [address], [address], 01/17/2025 10:51:39 01/18/20 25 01/17/2025 COMPL ETE BLOOD COUNT MPV 7.4 fL 6.2-10 .5 normal Not Available [facility] [address] [place] [address], [address], 01/17/2025 10:51:39 01/18/20 25 01/17/2025 COMPL ETE BLOOD COUNT platelet count 270 10*3/ uL 150-40 0 normal Not Available [facility] [address] [place] [address], [address], 01/17/2025 10:51:39 01/18/20 25 01/17/2025 COMPL ETE BLOOD COUNT neutrophil,a bsolute 3.7 10*3/ uL 1.6-8. 4 normal Not Available [facility] [address] [place] [address], [address], 01/17/2025 10:51:39 01/18/20 25 01/17/2025 COMPL ETE BLOOD COUNT lymphocyte,a bsolute 1.4 10*3/ uL 0.4-5. 1 normal Not Available [facility] [address] [place] [address], [address], 01/17/2025 10:51:39 01/18/20 25 01/17/2025 COMPL ETE BLOOD COUNT monocyte,abs olute 0.5 10*3/ uL 0.0-1. 2 normal Not Available [facility] [address] [place] [address], [address], 01/17/2025 10:51:39 01/18/20 25 01/17/2025 COMPL ETE BLOOD COUNT eosinophil,a bsolute 0.1 10*3/ uL 0.0-0. 8 normal Not Available [facility] [address] [place] [address], [address], 01/17/2025 10:51:39 01/18/20 25 01/17/2025 COMPL ETE BLOOD COUNT basophil,abs olute 0.0 10*3/ uL 0.0-0. 3 normal Not Available [facility] [address] [place] [address], [address], 01/17/2025 10:51:39 01/18/20 25 01/17/2025 COMPL ETE BLOOD COUNT % neutrophils 64.6 % 42.0-7 8.0 normal Not Available [facility] [address] [place] [address], [address], 01/17/2025 10:51:39 01/18/20 25 01/17/2025 COMPL ETE BLOOD COUNT % lymphocytes 23.5 % 11.0-4 7.0 normal Not Available [facility] [address] [place] [address], [address], 01/17/2025 10:51:39 01/18/20 25 01/17/2025 COMPL ETE BLOOD COUNT % monocytes 9.4 % 0.0-11 .0 normal Not Available [facility] [address] [place] [address], [address], 01/17/2025 10:51:39 01/18/20 25 01/17/2025 COMPL ETE BLOOD COUNT % eosinophils 1.9 % 0.0-7. 0 normal Not Available [facility] [address] [place] [address], [address], 01/17/2025 10:51:39 01/18/20 25 01/17/2025 COMPL ETE BLOOD COUNT % basophils 0.6 % 0.0-3. 0 normal Not Available [facility] [address] [place] [address], [address], 01/17/2025 10:51:39 01/18/20 25 01/17/2025 COMPL ETE BLOOD COUNT nucleated red cells 0.1 % 0.0-0. 9 normal Not Available [facility] [address] [place] [address], [address], 01/17/2025 10:51:39 01/18/20 25 01/17/2025 COMPL ETE BLOOD COUNT nucleated RBCs, absolute 0.01 10*3/ uL not estab. normal Not Available [facility] [address] [place] [address], [address], 01/17/2025 10:51:39 01/18/20 25 01/17/2025 COMP. METAB OLIC PANEL glucose 99 mg/dL 74-100 normal Not Available [facility] [address] [place] [address], [address], 01/17/2025 11:10:15 01/18/20 25 01/17/2025 COMP. METAB OLIC PANEL blood urea nitrogen 10 mg/dL 6-20 normal Not Available [facility] [address] [place] [address], [address], 01/17/2025 11:10:15 01/18/20 25 01/17/2025 COMP. METAB OLIC PANEL creatinine 1.12 mg/dL 0.70-1 .20 normal Not Available [facility] [address] [place] [address], [address], 01/17/2025 11:10:15 01/18/20 25 01/17/2025 COMP. METAB OLIC PANEL BUN/creatini ne ratio 9 (calc ) 10-20 low Not Available [facility] [address] [place] [address], [address], 01/17/2025 11:10:15 01/18/20 25 01/17/2025 COMP. METAB OLIC PANEL sodium 142 mmol/ L 136-14 5 normal Not Available [facility] [address] [place] [address], [address], 01/17/2025 11:10:15 01/18/20 25 01/17/2025 COMP. METAB OLIC PANEL potassium 4.6 mmol/ L 3.4-5. 0 normal Not Available [facility] [address] [place] [address], [address], 01/17/2025 11:10:15 01/18/20 25 01/17/2025 COMP. METAB OLIC PANEL chloride 105 mmol/ L 98-107 normal Not Available [facility] [address] [place] [address], [address], 01/17/2025 11:10:15 01/18/20 25 01/17/2025 COMP. METAB OLIC PANEL carbon dioxide 26 mmol/ L 22-31 normal Not Available [facility] [address] [place] [address], [address], 01/17/2025 11:10:15 01/18/20 25 01/17/2025 COMP. METAB OLIC PANEL anion gap 11 (calc ) 7-25 normal Not Available [facility] [address] [place] [address], [address], 01/17/2025 11:10:15 01/18/20 25 01/17/2025 COMP. METAB OLIC PANEL calcium 9.3 mg/dL 8.6-10 .2 normal Not Available [facility] [address] [place] [address], [address], 01/17/2025 11:10:15 01/18/20 25 01/17/2025 COMP. METAB OLIC PANEL total protein 7.1 g/dL 6.4-8. 3 normal Not Available [facility] [address] [place] [address], [address], 01/17/2025 11:10:15 01/18/20 25 01/17/2025 COMP. METAB OLIC PANEL albumin 4.4 g/dL 3.5-5. 2 normal Not Available [facility] [address] [place] [address], [address], 01/17/2025 11:10:15 01/18/20 25 01/17/2025 COMP. METAB OLIC PANEL globulin 2.7 1.5-4. 5 normal Not Available [facility] [address] [place] [address], [address], 01/17/2025 11:10:15 01/18/20 25 01/17/2025 COMP. METAB OLIC PANEL albumin/glob ulin ratio 1.6 (calc ) 1.1-2. 5 normal Not Available [facility] [address] [place] [address], [address], 01/17/2025 11:10:15 01/18/20 25 01/17/2025 COMP. METAB OLIC PANEL bilirubin, total 1.0 mg/dL 0.1-1. 2 normal Not Available [facility] [address] [place] [address], [address], 01/17/2025 11:10:15 01/18/20 25 01/17/2025 COMP. METAB OLIC PANEL alkaline phosphatase 59 U/L 40-129 normal Not Available [facility] [address] [place], [address], 01/17/2025 11:10:15 01/18/20 25 01/17/2025 COMP. METAB OLIC PANEL AST 20 U/L 0-40 normal Not Available [facility] [address] [place] [address], [address], 01/17/2025 11:10:15 01/18/20 25 01/17/2025 COMP. METAB OLIC PANEL ALT 14 U/L 0-41 normal Not Available [facility] [address] [place] [address], [address], 01/17/2025 11:10:15 01/18/2001/17/2025 COMP. METAB OLIC PANEL eGFR 72 >= 60 normal NOT E New calcu latio n for GFR (CKD- EPI 2020) is formu lated witho ut race adjus tment facto rs at the recom menda tion of the [employer] [employer] ation and Ameri can Pamelae ty of Nephr ology . This calcu latio n has not been valid ated in pregn ant women . For solo st nts refer to https :[email or web address] martel.[email or web address] burden/javier tay s/AKHILO QI/gf r_cal culat orPed Not Available [facility] [address] [place], [address], 01/17/2025 11:10:15 Result Notes None recorded. Problems Name Problem SNOMED Code Status Onset Date Resolution Date Notes Provider Name and Address Organization Details Recorded Time Essential tremor 336380017 Active 2015 From Automated Load;Provi vince: Haydee Dale;Stat us: Active Not Available [facility] 6 03:56:32 Elevated blood-pre ssure reading without diagnosis of hypertens ion 552239075 Active 2015 From Automated Load;Provi vince: Haydee Dale;Stat us: Active Not Available [facility] 6 03:56:32 Age-relat ed cognitive decline 527002331 Active 2015 From Automated Load;Provi vince: Haydee Dale;Stat us: Active Not Available [facility] 6 03:56:34 Problem Notes None recorded. Medical Equipment None Reported. Allergies Allergen ID Allergen Name Allergen Category Reaction Reaction Severity Criticality Documentation Date Start Date Code Code System Note Provider Name and Address Organization Details Recorded Time 648956 hydrocodo ne bitartrat e medicatio n Not available Not available Not available 06/03/20162011 63257 9 RxNorm Comme nt: Creat ed By: Dyana campos Date: 04/24 10:08 :23 AM; Not Available [facility] 6 04:51:04 365802 meloxicam medicatio n Not available Not available Not available 06/03/20162011 57102 RxNorm Comme nt: Creat ed By: Dyana campos Date: 04/24 10:07 :55 AM; Not Available [facility] 6 09:40:03 Medications Name Sig Start Date Stop Date Status Note LastModified by Organization Details LastModified Time primidone 50 mg tablet TAKE 1 TABLET BY MOUTH TWICE A DAY 2024 active Not Available Not Available Not Avai lable Multiple Vitamins tablet Take by oral route. 07/20 completed Not Available Not Available Not Available magnesium 200 mg tablet Take by oral route. 07/20 completed Not Available Not Available Not Available Topamax 50 mg tablet begin 1/2 tab qhs; q3d, increase by 1/2 tab daily until taking 1 tab bid (for tremor) 08/17 completed Not Available Not Available Not Available Co Q-10 200 mg capsule Take by oral route. 07/20 completed Not Available Not Available Not Available magnesium active Not Available Not Beverley ilable Not Available vitamin E active Not Available Not Beverley ilable Not Available multivitami n active Not Available Not Available Not Available Vitamin B12 active Not Available Not A vailable Not Available Vitamin B12 1000mcg 07/20 completed Not Available Not Available Not Available Vitals Date Recorded Body height Body mass index (BMI) Body weight Oxygen saturation Oxygen saturation in Arterial blood by Pulse oximetry Heart rate Systolic And Diastolic Provider Name and Address Organization Details Last Updated DateTime 3 172.72 cm 28.2 kg/m2 27203.6 9 g 97 % 97 % 81 /min 130/72 mm[Hg] Kelly Singlet[facility] 3 10:26:54 Date Recorded Body height Respiratory rate Heart rate Oxygen saturation Oxygen saturation in Arterial blood by Pulse oximetry Systolic And Diastolic Provider Name and Address Organization Details Last Updated DateTime 4 172.72 cm 16 /min 62 /min 98 % 98 % 160/90 mm[Hg] Deyanira Patel [facility] 4 10:31:59 Date Recorded Body height Body mass index (BMI) Body weight Heart rate Systolic And Diastolic Provider Name and Address Organization Details Last Updated DateTime 08/17/2020 172.72 cm 28.6 kg/m2 29251.37 g 60 /min 128/82 mm[Hg] Kimmy Torres [facility] 1 08:48:25 Date Recorded Body height Body mass index (BMI) Body weight Respiratory rate Oxygen saturation Oxygen saturation in Arterial blood by Pulse oximetry Heart rate Systolic And Diastolic Provider Name and Address Organization Details Last Updated DateTime 2 172.72 cm 26.5 kg/m2 42144.1 7 g 16 /min 99 % 99 % 61 /min 118/82 mm[Hg] Kelly Singletary [facility] 2 11:47:41 Date Recorded Body weight Heart rate Oxygen saturation Oxygen saturation in Arterial blood by Pulse oximetry Systolic And Diastolic Provider Name and Address Organization Details Last Updated DateTime 5 89201.5 2 g 59 /min 99 % 99 % 120/70 mm[Hg] Breann Tanner [facility] 5 09:53:38 Social History Question Answer Notes LastModified by Organizat ion Details LastModified Time Tobacco Smoking Status Never Smoker Tessy Cooper [facility] 02/13/2017 11:43:07 Live Alone Or With Others? With Others Information not available 02/13/2017 Marital Status [email or web address] Informatio n not available 02/13/2017 What Was The Date Of Your Most Recent Tobacco Screening? 07/20/2023 [email or web address] Information not available 07/20/2023 Sex: Male Functional Status Question Answer Note LastModified by Organizat ion Details LastModified Time What is your level of alcohol consumption? 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 [email or web address] Information not available 02/13/2017 Mental Status None recorded. Family History Relationship Description Onset Age of this Age Resolved Age Notes LastModified by Organization Details LastModified Time Father Harmful pattern of use of alcohol [email or web address] Not available 2016 11:42:09 Paternal Grandmother Cerebrovascu lar accident [email or web address] Not available 01/2017 11:42:24 Medical History Condition Response Parkinson's Disease N Alzheimer's N Migraines N Glaucoma N Depression N Neurological Problems Y Anxiety Disorder N Diabetes N Arthritis N Tuberculosis N Cancer N Stroke N High Cholesterol N Heart Disease N Hypertension N Past Encounters Encounter ID Performer Location Encounter Start Date Encounter Closed Date Diagnosis/Indication Diagnosis SNOMED-CT Code Diagnosis ICD10 Code Diagnosis IMO Codes Diagnosis Note [id number] HAYDEE DALE MD NEUROLOGY [facility] [address] [place] [address] 02/13/2017 11:03:06 02/13/2017 13:46:47 Essential tremor 442712945 G25.0 Well controlled on low dose primadone 50 mg bid tight control over BP - check CBC, CMP - recommend he follow with PCP annually and PRN CC: Gifty Dejesus MD,[place], [place] [id number] HAYDEE DALE MD NEUROLOGY [facility] [address] [place] [address] 02/13/2018 08:34:50 02/13/2018 09:59:07 Essential tremor 394543228 G25.0 Well controlled on low dose primadone 50 mg bidtight control over BP- check CBC, LFTs- recommend he follow with PCP annually and PRN- I will see him back in 1 year CC: Gifty Dejesus MD,[place] Patel Obstructiv e sleep apnea of adult 0433902482 103 G47.33 PMH sleep apnea, s/p uvulectomy and sinus surgery for deviated septum; now snoring loudly again and ESS 14 He is just a little overweight , not obese, but certainly, may benefit from weight loss - will obtain repeat sleep study Acquired d eviated nasal septum 43134557 J34.2 s/p surgery; pending results of sleep study, may send him back to ENT to see if surgical versus just tx with CPAP [id number] HAYDEE DALE MD NEUROLOGY [facility]OSED [address] [place] [address] 02/20/2019 08:33:23 02/20/2019 09:52:55 Essential tremor 860864063 G25.0 Well controlled on low dose primadone 50 mg bidBP is good today; not on medication - follow CBC, LFTs- again, recommend he follow at least annually with PCP- I will see him back in 1 year CC: Gifty Dejesus MD,TR Patel Obstructiv e sleep apnea of adult 5673335150 103 G47.33 PMH sleep apnea, s/p uvulectomy and sinus surgery for deviated septum; now snoring loudly again and ESS 14 He is just a little overweight , not obese, but certainly, may benefit from weight loss - will obtain repeat sleep study Acquired d eviated nasal septum 82275431 J34.2 s/p surgery; pending results of sleep study, may send him back to ENT to see if surgical versus just tx with CPAP Excessive daytime sleepiness - normal night sleep 642563735 G47.19 will check CBC, CMP, TSH, B12 and vit D will again request repeat sleep study [id number] [facility] [address] [place] [address] 04/01/2019 15:33:25 04/01/2019 15:35:05 [id number] HAYDEE DALE MD NEUROLOGY [facility] CLOSED [address] [place] [address] 02/18/2020 14:02:05 02/18/2020 16:20:32 Essential tremor 386227029 G25.0 Well controlled on low dose primadone 50 mg bid, but SE of low sex drive-- will give trial of decreasing primidone to 1 tab qhs; hold am dose-- after 2 weeks at lower dose primidone and assessment of severity of tremor, add Topamax, titrating up to 50 mg bid, but stay at lowest effective dose for the tremor -- counseled on potential SE of Topamax including cognitive SE, decreased appetite, weight loss, kidney stones, numbness and tinglingBP is good today; not on medication - follow CBC, CMP, folic acid q6-12 months- continue MVI daily and B12 1000 mcg biw- again, recommend he follow at least annually with PCP- I will see him back in 6 months >25 min appt with > 50% in counseling CC: Gifty Dejesus MD,[place] Obstructiv e sleep apnea of adult 2466016732 103 G47.33 PMH sleep apnea, s/p uvulectomy and sinus surgery for deviated septum; now snoring loudly again and ESS 14 AHI 9.7 (non-supin e 0.7, supine 29.9) --- I've advised that he sew a tennis ball into the back of his sleep shorts [id number] HAYDEE DALE MD NEUROLOGY [facility] CL[facility] [address] [place] [address] 08/17/2020 08:43:48 08/17/2020 10:11:38 Essential tremor 329180654 G25.0 Well controlled on low dose primidone 50 mg decreased from bid to 1 tab qhs; SE of low sex drive have improved on the lower dose-- continue primidone 1 tab qhs; hold am dose- begin CoQ10 200-300 mg qam and vit E 400 iu daily- Will avoid TOpamax due to trial with SE of anxiety- follow CBC, CMP q6-12 months- continue MVI daily and B12 1000 mcg biw- again, recommend he follow at least annually with PCP- review mild anemia with PCP- I will see him back in 12 months >25 min appt with > 50% in counseling CC: Gifty Dejesus MD,[place]ora m[place], [place] Obstructiv e sleep apnea of adult 6940775257 103 G47.33 PMH sleep apnea, s/p uvulectomy and sinus surgery for deviated septum; now snoring loudly again and ESS 14 AHI 9.7 (non-supin e 0.7, supine 29.9) --- Helping with tennis ball into the back of his sleep shorts 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 He also has some nighttime drooling, occasional health underwriter's cramp and exam noting slight decrease in R arm swing. Cannot exclude hypoxia ? SOLOMON. He has had concussion about 20 years ago, fell into concrete pit, hit head with LOC. Cannot exclude hypoxia ? SOLOMON. Lastly, myoclonus may be a sign of early PD. - will start with addition of reacted magnesium at bedtime - have check for snoring or apneas - pending above, may try Sinemet 25/100 1 tab qhs - if above ineffectiv e, will try Keppra. [id number] YOGESH BEAR MD NEUROLOGY CLOSED [address] [place], [place] [address] 12/13/2021 10:41:08 12/13/2021 12:18:34 Essential tremor 622981633 G25.0 Poor short -term memory 260683387 R41.3 [id number] YOGESH BEAR MD NEUROLOGY CLOSED [address] [place], [place] [address] 07/20/2022 09:55:32 07/20/2022 10:59:16 Essential tremor 859777902 G25.0 [id number] YOGESH BEAR MD NEUROLOGY [facility] [address] [place] [address] 07/20/2023 10:00:45 07/20/2023 11:03:49 Essential tremor 842491122 G25.0 [id number] YOGESH BEAR MD NEUROLOGY [address] [place] [address] 01/17/2025 09:31:55 01/17/2025 10:04:09 Essential tremor 539489711 G25.0 Health Concerns Section Related Observation LastModified by Organization Detai ls LastModified Time None Recorded Concern Status LastModified by Organization Details LastModified Time None Recorded Advance Directives Directive None Recorded Payers Insurance Date Sequence Insurance Name Policy Number Policy Zurita Covered Member ID Zurita Member ID Guarantor Name 01/17/2025 1 [place] - GUID[employer]ACCESS [employer] - PATHWAY X (HMO) [id number] Zackary Matamoros [id number] Zackary Matamoros 01/17/2025 1 [place] [id number] Zackary Matamoros [id number] Zackary Matamoros 01/17/2025 1 [place] Zackary Matamoros [id number] Zackary Matamoros 01/21/2025 2 [employer] (MEDICARE SUPPLEMENT) Zackary Matamoros [id number] Zackary Matamoros Notes Date Note Type Note Provider Name and Address Organization Details Recorded Time 08/17/2020 text/html f/u tremor He is now taking only 1 tab of primidone 50 mg qhs, down from bid. It seems to be working fine. Two weeks after he decreased the dose of primidone, he tried Topamax. He titrated Topamax up to 50 mg bid which he took for 2 solid weeks at that dose, but was having tired and nervous feeling on it. It was very evident and he didn't feel like himself. He feels he is doing fairly well. Just a little tremor that he doesn't really even notice unless he stops to look at it. His no longer notices it in his head anymore either. He was sitting reading a magazine while waiting here today and didn't notice the tremor until he thought about it, then realized it was moving. The ball sewn into the back of his PJs seems to be helping the snoring. He has noticed that when he is getting ready to fall asleep, he flinches. It's been about a year, at least, he was supposed to mention it when he was here at last visit. It seems worse when he is really tired or has worked hand. It typically in his hands, but can be shoulders or the whole body. His has been c/o that it occurs while he is sleeping and he notes that it has even awakened him before. He is taking Centrum Silver for Men MVI daily and a vit B12 1000 mcg PO twice a week. No other vitamins. He drools in his sleep, wakes up with pillow wet sometimes. He gets health underwriter's cramp now and then. No RLS. No constipation. He feels some stiffness when he first gets up in the morning, but its ok after he walks around a bit. Otherwise no stiffness, rigidity or change in gait. Voice has not changes. No problems with swallowing. His sister who is 6 years old than him also has tremor, including in her face, not sure if rest or postural tremor, but he thinks she has a fast, small steps and hunched over posture. He doesn't get to see her often, she lives up [facility]. No known tremor in either parents. His younger sister w/o tremor. He has had concussion with brief LOC about 20 years ago when he feel in the basement hit concrete. Primidone SE of low sex drive have improved on the lower dose. HAYDEE DALE [place], [address], [facility] 08/17/2020 10:06:49 12/13/2021 text/html He was seen previously by Dr. Dale with essential tremor, last seen in August 2020He has had tremor of the hands and head for 10+ years.Primidone 50 mg is helpful.On this medicine, tremor is just barely noticed, perhaps when stressed or aggravated.older sister has tremor They wanted to discuss another problem. The past 6-8 mos, he has had concern about this memory. His has noticed change.He forgets names and numbers and conversations. Repeats himself. Misplaces things more than usual. No sig change in mood or behavior. 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 stays active.no problems driving or directions.No family h/o dementia.had head injury in 2003.sleeps well.he has had surgery for SOLOMON YOGESH BEAR MD [address] [place], [address], [facility] 12/13/2021 15:41:13 07/20/2022 text/html He was seen in December with mild essential tremor, on primidone, and with question of MCI.B12, TSH were normal.There was plan for brain MRI but this was not done. Tremor has been stable. Primidone helps. Memory he thinks is stable or better.There is less stress since he retired. Sleeps OK. Snores. Mild SOLOMON on sleep study in 2019, but severe when in supine position. This was in 2019. He did not tolerate CPAP. He had surgery for SOLOMON many years ago. not o/w ill. YOGESH BEAR MD [address] [place], [address], [facility] 07/20/2022 10:56:43 07/20/2023 text/html He was seen a year ago.He is doing well still.If he is very tired, he may notice tremor in the hands.Otherwise he is not bothered. 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 not o/w ill does not take any other meds. YOGESH BEAR MD [address] [place], [address], [facility] 07/20/2023 11:03:25 01/17/2025 text/html He was seen early last year. Doing well still. If he is very tired, he may notice tremor in the hands.Otherwise he is not bothered. 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 YOGESH BEAR MD [address] [place], [address], [facility] 01/17/2025 10:03:49
--- OUTSIDE RECORDS SUMMARY | 2025-05-21 14:28 | XMS_ITS | Encounter Summary ---
Author Organization [place] [address] Care Team Providers Care Caregiver Services Home Name Role Phone Carly Tomas Primary Care Provider [phone] Encounter Details Date Type Department Care Team (Late st Contact Info) Description 05/07/2021 Orders Only SEP Gastro [facility] [address] [place] [address] Petty Lanza MD [address] [id number] Social History Tobacco Use Types Packs/Day Years [...] AM EDT) 05/07/2021 7:00 AM EDT Impressions [facility] - 05/07/2021 7:37 AM EDT [...] ORDERAB LES Final Result Performing Organization Address City/State/[facility] Co de Phone Number [facility] [address] [place] [address] documented in this encounter Visit Diagnoses Not on filedocumented in this encounter Care Teams Caregiver Services Home Relationship Specialty Start Date End Date Carly Tomas [address] [facility] [address] [place] [address] PCP - General Family Medicine 11/09/15 documented as of this encounter
--- NOTE | 2025-05-21 14:30 | CA_ITS ---
APPROVED REPORT EXAM: Comprehensive 2D, Doppler, and color-flow Echocardiogram Brass Sorter: Tosha Carpenter RT(R) Ht: 5 ft 8 in Wt: 167lbs BSA: 1.89 BP: 138/76 mmHg Indications: shortness of breath, dizziness, RBBB on EKG 2D Dimensions LA Volume 25.60 mL LA Volume Index 13.54 mL/m2 (M/F) 16-34 EF AP4 69.40 % GL Strain -23.0 % M-Mode Dimensions RVDd 3.06 cm (0.9-2.6) LA Diam 3.43 cm (1.9-4.0) LVDd 4.87 cm (3.5-5.7) LVDs 3.90 cm (3.5-5.7) IVSd 0.68 cm (0.6-1.1) PWd 0.76 cm (0.6-1.1) EF (Teich) 40.70% FS 19.90% EDV (Teich) 111.20 mL TAPSE 2.62 (<1.7) ESV (Teich) 65.90 mL LV Diastology E Decel Time 193 (160-240 msec) E/A Ratio 1.3 Mitral Valve MV E Max Bran. 105.0 (40-130 cm/s) MV A Velocity 84.0 (40-130 cm/s) E/A Ratio 1.25 MV PHT 57.0 ms Tricuspid Valve TR P. Velocity 310.00 cm/s RAP Estimate 10.00 mmHg RVSP 48.50 mmHg Left Ventricle The left ventricle is normal size. Left ventricular systolic function is low-normal. There is normal left ventricular wall thickness. The septum is asynchronous. The left ventricular diastolic function is normal. LVEF is 50% Right Ventricle The right ventricle is mildly dilated. The right ventricular systolic function is normal. Atria The left atrium is mildly dilated. The right atrium is mildly dilated. There is no color Doppler evidence of interatrial shunt. Aortic Valve The aortic valve is mildly thickened. There is no hemodynamically significant aortic valvular stenosis. Trace aortic regurgitation is present. Mitral Valve The mitral valve is normal in structure. No evidence of mitral valve stenosis. Mild mitral regurgitation is present. Tricuspid Valve The tricuspid valve leaflets are thin and pliable. Mild tricuspid regurgitation. RVSP is 35-40 mmHg. Pulmonic Valve The pulmonary valve is grossly normal in structure. Trace pulmonic valve regurgitation is present. Great Vessels The aortic root is normal in size. The ascending aorta is mildly dilated, measuring 4.0 cm in diameter. IVC is normal in size and collapses >50% with inspiration. Pericardium There is no pericardial effusion. Other Information Study Quality: Fair Conclusion Low-normal LV systolic function (LVEF 50%). The septum is asynchronous. Mild RV dilation with normal RV function. Mild MR, mild TR. RVSP 35-40 mmHg. Electronically signed by : Payton Rios MD 05/22/2025 03:35:33
== END 2025-05-21 23:59 | disposition home or self-care (01) ==
LOC: RT 14:18
PROVIDERS: PCP Family Medicine; Visit Provider Nurse Practitioner
DX: I08.1 Rheumatic disorders of both mitral and tricuspid valves (principal); R93.1 Abnormal findings on diagnostic imaging of heart and coronary circulation; I45.10 Unspecified right bundle-branch block; R42 Dizziness and giddiness; R94.31 Abnormal electrocardiogram [ECG] [EKG]
CPT/HCPCS: 93306

== ENCOUNTER 2025-05-29 07:15 | Outpatient (CLI) | payer MEDICARE, OTHER, SELFPAY ==
--- NOTE | 2025-05-29 | CA_ITS ---
APPROVED REPORT Exam: Exercise Treadmill Technologist: Mary Lou Montero Ht: 5 ft 8 in Wt: 167 lbs BSA: 1.89 m2 HR: 64 bpm BP: 138/80 mmHg Rhythm: Sinus rhythm Medical History Cardiac Risk Factors: FHX of CAD Stress Test Details HR Resting HR: 64 bpm Max Heart Rate (APMHR): 153.591228 bpm Target HR (85% APMHR): 130.519781 bpm Recovery HR: 114 bpm BP Resting BP: 138.0/80.0 mmHg Recovery BP: 170.0/80.0 mmHg ECG Resting ECG: Sinus rhythm Clinical Reason for Termination: Leg pain/Claudication Exercise duration: 10 min Highest Stage Achieved: Stage 4: 4.2 mph at 16% grade. Exercise capacity: 12.1 METs Stress ECG Conclusion During nithya protocol pt walked for 10 minutes, pt requested to stop due to leg fatigue. Pt experinced no symptoms. PVC noted. Less than 0.5mm upsloping ST segment changes. 88% of PM. Electronically signed by : Payton Rios MD 05/29/2025 15:18:19
--- OUTSIDE RECORDS SUMMARY | 2025-05-29 07:19 | XMS_ITS | Data Portability ---
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 02/2019 CBCm, CMP, TSH -- all normal (glu 110, non-fasting), B12 440. vit D 51 02/13/18 CBC, LFTs wnl [email or web address] Not available 08/17/2020 09:25:36 12/13/2021 12/13/2021 1. Mild essential tremor, stable. 2. Mild cognitive impairment? He scores normally on MMSE but he and his have noticed change in short-term memory over the past 6-8 mos Will continue same primidone. For #2 will check B12, TSH, and arrange for brain MRI. f/u few mos for re-evaluation encouraged regular mental, physical, social activity. [email or web address] Not available 12/13/2021 15:40:41 07/20/2022 07/20/2022 Essential tremor, stable. Will continue primidone. There was question of MCI last time, but if anything he feels his memory is better. It is possible that untreated SOLOMON could be contributing; he did not tolerate CPAP. Will have f/u one year [email or web address] Not available 07/20/2022 10:56:28 07/20/2023 07/20/2023 Essential tremor, very stable. Same primidone. f/u 1.5 years or sooner if needed. [email or web address] Not available 07/20/2023 11:03:07 01/17/2025 01/17/2025 Essential tremor, very stable. Same primidone. He has had no labs in four years. I will check CMP and CBC. Does not routinely see PCP; I suggested he do this annually for checkup. f/u 1.5 years or sooner if needed. [email or web address] Not available 01/17/2025 10:03:32 Plan of Treatment Reminders Order Date Submit Date Provider Last Modified By Organization Details Last Modified Time Details Appointments NEUROLOG Y RECHECK 2026 09:45A Silvia BEAR MD Not available Not available Not available Lab CMP, serum or plasma 2024 025 [facility], [address] [place] [address], [address], 01/17/2025 11:10:15 CBC w/ auto diff 2024 025 [facility], [address] [place] [address], [address], 01/17/2025 10:51:39 vitamin B12, serum 2021 022 [facility], [address] [place] [address], [address], 12/13/2021 13:59:00 TSH, serum or plasma 2021 022 [facility], [address] [place] [address], [address], 12/13/2021 13:51:29 CBC w/ auto diff 2020 021 [facility], [address] [place] [address], [address], 08/27/2020 08:42:57 CMP, serum or plasma 2020 021 [facility], [address] [place], [address], 08/27/2020 08:57:36 Referral None recorded . Procedures None recorded . Surgeries None recorded . Imaging MRI, brain, w/wo contrast [address] [facility], [address] [place], [address], 12/20/2021 16:34:32 Medication Orders primidon e 50 mg tablet 2024 025 [facility], [address] [facility] [place], [address], 01/17/2025 10:30:29 primidon e 50 mg tablet 2023 024 [facility], [address] [facility] [place], [address], 07/20/2023 11:03:35 primidon e 50 mg tablet 2021 022 [facility], [address] [facility] [place], [address], 07/08/2022 11:12:23 primidon e 50 mg tablet 2020 021 [facility], [address] [facility] [facility] [place], [address], 08/17/2020 10:08:04 Patient TargetsNo targets recorded. Patient Instructions Encounter Date Encounter Id Patient Instructions Last Modified By Organization Details Last Modified Time 12/13/2021 [id number] I spent 5-10 minutes reviewing records, 30+ minutes with pt, 5-10 minutes typing this. [email or web address] Not available 12/13/2021 15:40:59 Reason for Referral None Reported. Results Created Date Observation Date Name Description Value Unit Range Abnormal Flag Note LastModifiedBy Organization Detail LastModifiedTime 08/27/19 21 08/27/2020 CBC w/ auto diff white blood cells 6.3 K/uL 3.8-10 .8 normal Not Available [facility] [address] [place] [address], [address], 08/27/2020 08:42:57 08/27/19 21 08/27/2020 CBC w/ auto diff red blood cells 4.70 M/uL 4.20-5 .80 normal Not Available [facility] [address] [place] [address], [address], 08/27/2020 08:42:57 08/27/19 21 08/27/2020 CBC w/ auto diff hemoglobin 14.2 g/dL 14.0-1 8.0 normal Not Available [facility] [address] [place] [address], [address], 08/27/2020 08:42:57 08/27/19 21 08/27/2020 CBC w/ auto diff hematocrit 42.8 % 40.0-5 2.0 normal Not Available [facility] [address] [place] [address], [address], 08/27/2020 08:42:57 08/27/19 21 08/27/2020 CBC w/ auto diff MCV 91 fL 80-100 normal Not Available [facility] [address] [place] [address], [address], 08/27/2020 08:42:57 08/27/19 21 08/27/2020 CBC w/ auto diff MCH 30 pg 26-35 normal Not Available [facility] [address] [place] [address], [address], 08/27/2020 08:42:57 08/27/19 21 08/27/2020 CBC w/ auto diff MCHC 33 g/dL 32-36 normal Not Available [facility] [address] [place] [address], [address], 08/27/2020 08:42:57 08/27/19 21 08/27/2020 CBC w/ auto diff RDW 13.4 % 11.0-1 5.0 normal Not Available [facility] [address] [place] [address], [address], 08/27/2020 08:42:57 08/27/19 21 08/27/2020 CBC w/ auto diff MPV 7.7 fL 6.2-10 .5 normal Not Available [facility] [address] [place] [address], [address], 08/27/2020 08:42:57 08/27/19 21 08/27/2020 CBC w/ auto diff platelet count 272 K/uL 130-40 0 normal Not Available [facility] [address] [place] [address], [address], 08/27/2020 08:42:57 08/27/19 21 08/27/2020 CBC w/ auto diff neutrophil,a bsolute 3.8 K/uL 1.6-8. 4 normal Not Available [facility] [address] [place] [address], [address], 08/27/2020 08:42:57 08/27/19 21 08/27/2020 CBC w/ auto diff lymphocyte,a bsolute 1.6 K/uL 0.4-5. 1 normal Not Available [facility] [address] [place] [address], [address], 08/27/2020 08:42:57 08/27/19 21 08/27/2020 CBC w/ auto diff monocyte,abs olute 0.7 K/uL 0.0-1. 2 normal Not Available [facility] [address] [place] [address], [address], 08/27/2020 08:42:57 08/27/19 21 08/27/2020 CBC w/ auto diff eosinophil,a bsolute 0.2 K/uL 0.0-0. 8 normal Not Available [facility] [address] [place] [address], [address], 08/27/2020 08:42:57 08/27/19 21 08/27/2020 CBC w/ auto diff basophil,abs olute 0.0 K/uL 0.0-0. 3 normal Not Available [facility] [address] [place] [address], [address], 08/27/2020 08:42:57 08/27/19 21 08/27/2020 CBC w/ auto diff % neutrophils 59.8 % 42.0-7 8.0 normal Not Available [facility] [address] [place] [address], [address], 08/27/2020 08:42:57 08/27/19 21 08/27/2020 CBC w/ auto diff % lymphocytes 25.4 % 11.0-4 7.0 normal Not Available [facility] [address] [place] [address], [address], 08/27/2020 08:42:57 08/27/19 21 08/27/2020 CBC w/ auto diff % monocytes 11.3 % 0.0-11 .0 high Not Available [facility] [address] [place] [address], [address], 08/27/2020 08:42:57 08/27/19 21 08/27/2020 CBC w/ auto diff % eosinophils 3.0 % 0.0-7. 0 normal Not Available [facility] [address] [place] [address], [address], 08/27/2020 08:42:57 08/27/19 21 08/27/2020 CBC w/ auto diff % basophils 0.5 % 0.0-3. 0 normal Not Available [facility] [address] [place] [address], [address], 08/27/2020 08:42:57 08/27/19 21 08/27/2020 CBC w/ auto diff nucleated red cells 0.0 % 0.0-0. 9 normal Not Available [facility] [address] [place] [address], [address], 08/27/2020 08:42:57 08/27/19 21 08/27/2020 CBC w/ auto diff nucleated RBCs, absolute 0.00 K/uL not estab. normal Not Available [facility] [address] [place] [address], [address], 08/27/2020 08:42:57 08/27/19 21 08/27/2020 CMP, serum or plasm a glucose 114 mg/dL 74-100 high Not Available [facility] [address] [place] [address], [address], 08/27/2020 08:57:36 08/27/19 21 08/27/2020 CMP, serum or plasm a blood urea nitrogen 11 mg/dL 6-20 normal Not Available [facility] [address] [place] [address], [address], 08/27/2020 08:57:36 08/27/19 21 08/27/2020 CMP, serum or plasm a creatinine 1.06 mg/dL 0.70-1 .25 normal Not Available [facility] [address] [place] [address], [address], 08/27/2020 08:57:36 08/27/1908/27/2020 CMP, serum or plasm a BUN/creatini ne ratio 10 (calc ) 10-20 normal Not Available [facility] [address] [place] [address], [address], 08/27/2020 08:57:36 08/27/19 21 08/27/2020 CMP, serum or plasm a sodium 140 mmol/ L 136-14 5 normal Not Available [facility] [address] [place] [address], [address], 08/27/2020 08:57:36 08/27/19 21 08/27/2020 CMP, serum or plasm a potassium 4.3 mmol/ L 3.4-5. 0 normal Not Available [facility] [address] [place] [address], [address], 08/27/2020 08:57:36 08/27/19 21 08/27/2020 CMP, serum or plasm a chloride 102 mmol/ L 98-107 normal Not Available [facility] [address] [place] [address], [address], 08/27/2020 08:57:36 08/27/19 21 08/27/2020 CMP, serum or plasm a carbon dioxide 27 mmol/ L 20-32 normal Not Available [facility] [address] [place] [address], [address], 08/27/2020 08:57:36 08/27/19 21 08/27/2020 CMP, serum or plasm a anion gap 11 (calc ) 7-25 normal Not Available [facility] [address] [place] [address], [address], 08/27/2020 08:57:36 08/27/19 21 08/27/2020 CMP, serum or plasm a calcium 9.3 mg/dL 8.6-10 .2 normal Not Available [facility] [address] [place] [address], [address], 08/27/2020 08:57:36 08/27/19 21 08/27/2020 CMP, serum or plasm a total protein 7.0 g/dL 6.4-8. 3 normal Not Available [facility] [address] [place] [address], [address], 08/27/2020 08:57:36 08/27/19 21 08/27/2020 CMP, serum or plasm a albumin 4.4 g/dL 3.5-5. 2 normal Not Available [facility] [address] [place] [address], [address], 08/27/2020 08:57:36 08/27/19 21 08/27/2020 CMP, serum or plasm a globulin 2.6 g/dL_ (calc ) 1.5-4. 5 normal Not Available [facility] [address] [place] [address], [address], 08/27/2020 08:57:36 08/27/19 21 08/27/2020 CMP, serum or plasm a albumin/glob ulin ratio 1.7 (calc ) 1.1-2. 5 normal Not Available [facility] [address] [place] [address], [address], 08/27/2020 08:57:36 08/27/19 21 08/27/2020 CMP, serum or plasm a bilirubin, total 0.6 mg/dL 0.1-1. 2 normal Not Available [facility] [address] [place] [address], [address], 08/27/2020 08:57:36 08/27/19 21 08/27/2020 CMP, serum or plasm a alkaline phosphatase 55 U/L 40-130 normal Not Available [facility] [address] [place] [address], [address], 08/27/2020 08:57:36 08/27/1908/27/2020 CMP, serum or plasm a AST 16 U/L 0-40 normal Not Available [facility] [address] [place] [address], [address], 08/27/2020 08:57:36 08/27/1908/27/2020 CMP, serum or plasm a ALT 17 U/L 0-41 normal Not Available [facility] [address] [place] [address], [address], 08/27/2020 08:57:36 08/27/19 21 08/27/2020 CMP, serum or plasm a GFR 86 >= 60 normal Not Available [facility] [address] [place] [address], [address], 08/27/2020 08:57:36 08/27/19 21 08/27/2020 CMP, serum [...] month s or longe r. Not Available [facility] [address] [place] [address], [address], 08/27/2020 08:57:36 12/14/19 22 12/13/2021 TSH TSH 1.340 uIU/m L 0.270- 4.200 normal Not Available [facility] [address] [place] [address], [address], 12/13/2021 13:51:29 12/14/19 22 12/13/2021 VITAM IN B12 vitamin B12 476 pg/mL 232-12 45 normal Not Available [facility] [address] [place] [address], [address], 12/13/2021 13:59:00 01/18/20 25 01/17/2025 COMPL ETE BLOOD COUNT white blood cells 5.8 10*3/ uL 3.8-10 .8 normal Not Available [facility] [address] [place] [address], [address], 01/17/2025 10:51:39 01/18/20 25 01/17/2025 COMPL ETE BLOOD COUNT red blood cells 4.36 10*6/ uL 4.20-5 .80 normal Not Available [facility] [address] [place] [address], [address], 01/17/2025 10:51:39 01/18/20 25 01/17/2025 COMPL ETE BLOOD COUNT hemoglobin 13.5 g/dL 14.0-1 8.0 low Not Available [facility] [address] [place] [address], [address], 01/17/2025 10:51:39 01/18/20 25 01/17/2025 COMPL ETE BLOOD COUNT hematocrit 39.3 % 40.0-5 2.0 low Not Available [facility] [address] [place] [address], [address], 01/17/2025 10:51:39 01/18/20 25 01/17/2025 COMPL ETE BLOOD COUNT MCV 90 fL 80-100 normal Not Available [facility] [address] [place] [address], [address], 01/17/2025 10:51:39 01/18/20 25 01/17/2025 COMPL ETE BLOOD COUNT MCH 31 pg 26-35 normal Not Available [facility] [address] [place] [address], [address], 01/17/2025 10:51:39 01/18/20 25 01/17/2025 COMPL ETE BLOOD COUNT MCHC 34 g/dL 32-36 normal Not Available [facility] [address] [place] [address], [address], 01/17/2025 10:51:39 01/18/20 25 01/17/2025 COMPL ETE BLOOD COUNT RDW 13.9 % 11.0-1 5.0 normal Not Available [facility] [address] [place] [address], [address], 01/17/2025 10:51:39 01/18/20 25 01/17/2025 COMPL ETE BLOOD COUNT MPV 7.4 fL 6.2-10 .5 normal Not Available [facility] [address] [place] [address], [address], 01/17/2025 10:51:39 01/18/20 25 01/17/2025 COMPL ETE BLOOD COUNT platelet count 270 10*3/ uL 150-40 0 normal Not Available [facility] [address] [place] [address], [address], 01/17/2025 10:51:39 01/18/20 25 01/17/2025 COMPL ETE BLOOD COUNT neutrophil,a bsolute 3.7 10*3/ uL 1.6-8. 4 normal Not Available [facility] [address] [place] [address], [address], 01/17/2025 10:51:39 01/18/20 25 01/17/2025 COMPL ETE BLOOD COUNT lymphocyte,a bsolute 1.4 10*3/ uL 0.4-5. 1 normal Not Available [facility] [address] [place] [address], [address], 01/17/2025 10:51:39 01/18/20 25 01/17/2025 COMPL ETE BLOOD COUNT monocyte,abs olute 0.5 10*3/ uL 0.0-1. 2 normal Not Available [facility] [address] [place] [address], [address], 01/17/2025 10:51:39 01/18/20 25 01/17/2025 COMPL ETE BLOOD COUNT eosinophil,a bsolute 0.1 10*3/ uL 0.0-0. 8 normal Not Available [facility] [address] [place] [address], [address], 01/17/2025 10:51:39 01/18/20 25 01/17/2025 COMPL ETE BLOOD COUNT basophil,abs olute 0.0 10*3/ uL 0.0-0. 3 normal Not Available [facility] [address] [place] [address], [address], 01/17/2025 10:51:39 01/18/20 25 01/17/2025 COMPL ETE BLOOD COUNT % neutrophils 64.6 % 42.0-7 8.0 normal Not Available [facility] [address] [place] [address], [address], 01/17/2025 10:51:39 01/18/20 25 01/17/2025 COMPL ETE BLOOD COUNT % lymphocytes 23.5 % 11.0-4 7.0 normal Not Available [facility] [address] [place] [address], [address], 01/17/2025 10:51:39 01/18/20 25 01/17/2025 COMPL ETE BLOOD COUNT % monocytes 9.4 % 0.0-11 .0 normal Not Available [facility] [address] [place] [address], [address], 01/17/2025 10:51:39 01/18/20 25 01/17/2025 COMPL ETE BLOOD COUNT % eosinophils 1.9 % 0.0-7. 0 normal Not Available [facility] [address] [place] [address], [address], 01/17/2025 10:51:39 01/18/20 25 01/17/2025 COMPL ETE BLOOD COUNT % basophils 0.6 % 0.0-3. 0 normal Not Available [facility] [address] [place] [address], [address], 01/17/2025 10:51:39 01/18/20 25 01/17/2025 COMPL ETE BLOOD COUNT nucleated red cells 0.1 % 0.0-0. 9 normal Not Available [facility] [address] [place] [address], [address], 01/17/2025 10:51:39 01/18/20 25 01/17/2025 COMPL ETE BLOOD COUNT nucleated RBCs, absolute 0.01 10*3/ uL not estab. normal Not Available [facility] [address] [place] [address], [address], 01/17/2025 10:51:39 01/18/20 25 01/17/2025 COMP. METAB OLIC PANEL glucose 99 mg/dL 74-100 normal Not Available [facility] [address] [place] [address], [address], 01/17/2025 11:10:15 01/18/20 25 01/17/2025 COMP. METAB OLIC PANEL blood urea nitrogen 10 mg/dL 6-20 normal Not Available [facility] [address] [place] [address], [address], 01/17/2025 11:10:15 01/18/20 25 01/17/2025 COMP. METAB OLIC PANEL creatinine 1.12 mg/dL 0.70-1 .20 normal Not Available [facility] [address] [place] [address], [address], 01/17/2025 11:10:15 01/18/20 25 01/17/2025 COMP. METAB OLIC PANEL BUN/creatini ne ratio 9 (calc ) 10-20 low Not Available [facility] [address] [place] [address], [address], 01/17/2025 11:10:15 01/18/20 25 01/17/2025 COMP. METAB OLIC PANEL sodium 142 mmol/ L 136-14 5 normal Not Available [facility] [address] [place] [address], [address], 01/17/2025 11:10:15 01/18/20 25 01/17/2025 COMP. METAB OLIC PANEL potassium 4.6 mmol/ L 3.4-5. 0 normal Not Available [facility] [address] [place] [address], [address], 01/17/2025 11:10:15 01/18/20 25 01/17/2025 COMP. METAB OLIC PANEL chloride 105 mmol/ L 98-107 normal Not Available [facility] [address] [place] [address], [address], 01/17/2025 11:10:15 01/18/20 25 01/17/2025 COMP. METAB OLIC PANEL carbon dioxide 26 mmol/ L 22-31 normal Not Available [facility] [address] [place] [address], [address], 01/17/2025 11:10:15 01/18/20 25 01/17/2025 COMP. METAB OLIC PANEL anion gap 11 (calc ) 7-25 normal Not Available [facility] [address] [place] [address], [address], 01/17/2025 11:10:15 01/18/20 25 01/17/2025 COMP. METAB OLIC PANEL calcium 9.3 mg/dL 8.6-10 .2 normal Not Available [facility] [address] [place] [address], [address], 01/17/2025 11:10:15 01/18/20 25 01/17/2025 COMP. METAB OLIC PANEL total protein 7.1 g/dL 6.4-8. 3 normal Not Available [facility] [address] [place] [address], [address], 01/17/2025 11:10:15 01/18/20 25 01/17/2025 COMP. METAB OLIC PANEL albumin 4.4 g/dL 3.5-5. 2 normal Not Available [facility] [address] [place] [address], [address], 01/17/2025 11:10:15 01/18/20 25 01/17/2025 COMP. METAB OLIC PANEL globulin 2.7 1.5-4. 5 normal Not Available [facility] [address] [place] [address], [address], 01/17/2025 11:10:15 01/18/20 25 01/17/2025 COMP. METAB OLIC PANEL albumin/glob ulin ratio 1.6 (calc ) 1.1-2. 5 normal Not Available [facility] [address] [place] [address], [address], 01/17/2025 11:10:15 01/18/20 25 01/17/2025 COMP. METAB OLIC PANEL bilirubin, total 1.0 mg/dL 0.1-1. 2 normal Not Available [facility] [address] [place] [address], [address], 01/17/2025 11:10:15 01/18/20 25 01/17/2025 COMP. METAB OLIC PANEL alkaline phosphatase 59 U/L 40-129 normal Not Available [facility] [address] [place], [address], 01/17/2025 11:10:15 01/18/20 25 01/17/2025 COMP. METAB OLIC PANEL AST 20 U/L 0-40 normal Not Available [facility] [address] [place] [address], [address], 01/17/2025 11:10:15 01/18/20 25 01/17/2025 COMP. METAB OLIC PANEL ALT 14 U/L 0-41 normal Not Available [facility] [address] [place] [address], [address], 01/17/2025 11:10:15 01/18/2001/17/2025 COMP. METAB OLIC PANEL [...] s/AKHILO QI/gf r_cal culat orPed Not Available [facility] [address] [place], [address], 01/17/2025 11:10:15 Result Notes None recorded. Problems Name Problem SNOMED Code Status Onset Date Resolution Date Notes Provider Name and Address Organization Details Recorded Time Essential tremor 144757043 Active 2015 From Automated Load;Provi vince: Haydee Dale;Stat us: Active Not Available Counts include 234 beds at the [facility] 6 03:56:32 Elevated blood-pre ssure reading without diagnosis of hypertens ion 042800963 Active 2015 From Automated Load;Provi vince: Haydee Dale;Stat us: Active Not Available Counts include 234 beds at the [facility] 6 03:56:32 Age-relat ed cognitive decline 068934155 Active 2015 From Automated Load;Provi vince: Haydee Dale;Stat us: Active Not Available Counts include 234 beds at the [facility] 6 03:56:34 Problem Notes None recorded. Medical Equipment None Reported. Allergies Allergen ID Allergen Name Allergen Category Reaction Reaction Severity Criticality Documentation Date Start Date Code Code System Note Provider Name and Address Organization Details Recorded Time 630808 hydrocodo ne bitartrat e medicatio n Not available Not available Not available 06/03/20162011 42940 9 RxNorm Comme nt: Creat ed By: Dyana campos Date: 04/24 10:08 :23 AM; Not Available Counts include 234 beds at the [facility] 6 04:51:04 085407 meloxicam medicatio n Not available Not available Not available 06/03/20162011 09290 RxNorm Comme nt: Creat ed By: Dyana campos Date: 04/24 10:07 :55 AM; Not Available Counts include 234 beds at the [facility] 6 09:40:03 Medications Name Sig Start [...] mass index (BMI) Body weight Oxygen saturation Heart rate Systolic And Diastolic Provider Name and Address Organization Details Last Updated DateTime 3 172.72 cm 28.2 kg/m2 15417.6 9 g 97 % 81 /min 130/72 mm[Hg] Kelly Singletary [facility] 3 10:26:54 Date Recorded Body height Respiratory rate Heart rate Oxygen saturation Systolic And Diastolic Provider Name and Address Organization Details Last Updated DateTime 4 172.72 cm 16 /min 62 /min 98 % 160/90 mm[Hg] Deyanira Patel [facility] 4 10:31:59 Date Recorded Body height Body mass index (BMI) Body weight Heart rate Systolic And Diastolic Provider Name and Address Organization Details Last Updated DateTime 08/17/2020 172.72 cm 28.6 kg/m2 14048.37 g 60 /min 128/82 mm[Hg] Kimmy Torres [facility] 1 08:48:25 Date Recorded Body height Body mass index (BMI) Body weight Respiratory rate Oxygen saturation Heart rate Systolic And Diastolic Provider Name and Address Organization Details Last Updated DateTime 2 172.72 cm 26.5 kg/m2 37294.1 7 g 16 /min 99 % 61 /min 118/82 mm[Hg] Kelly Singletary [facility] 2 11:47:41 Date Recorded Body weight Heart rate Oxygen saturation Systolic And Diastolic Provider Name and Address Organization Details Last Updated DateTime 01/17/2025 13364.52 g 59 /min 99 % 120/70 mm[Hg] Breann Tanner [facility] 01/17/2025 09:53:38 Social History Question Answer Notes LastModified by Organizat ion Details LastModified Time Tobacco Smoking Status Never Smoker Tessy Guerramar [facility] 02/13/2017 11:43:07 Live Alone Or With Others? With Others [email or web address] Information not available 02/13/2017 Marital Status solmar Informatio n not available 02/13/2017 What Was The Date Of Your Most Recent Tobacco Screening? 07/20/2023 [email or web address] Information not available 07/20/2023 Sex: Male Functional Status Question Answer Note LastModified by Organizat ion Details LastModified Time What is your level of alcohol consumption? 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 Information not available 02/13/2017 Mental Status None recorded. Family History Relationship Description Onset Age of this Age Resolved Age Notes LastModified by Organization Details LastModified Time Father Harmful pattern of use of alcohol [email or web address] Not available 2016 11:42:09 Paternal Grandmother Cerebrovascu lar accident [email or web address] Not available 01/2017 11:42:24 Medical History Condition Response Diabetes N Anxiety Disorder N Arthritis N Parkinson's Disease N Tuberculosis N Alzheimer's N Cancer N Migraines N Stroke N Depression N Glaucoma N High Cholesterol N Heart Disease N Hypertension N Neurological Problems Y Past Encounters Encounter ID Performer Location Encounter Start Date Encounter Closed Date Diagnosis/Indication Diagnosis SNOMED-CT Code Diagnosis ICD10 Code Diagnosis IMO Codes Diagnosis Note [id number] HAYDEE DALE MD NEUROLOGY [facility] [address] [place] [address] 02/13/2017 11:03:06 02/13/2017 13:46:47 Essential tremor 019688792 G25.0 Well controlled on low dose primadone 50 mg bid tight control over BP - check CBC, CMP - recommend he follow with PCP annually and PRN CC: Gifty Dejesus MD,Leonora mittal [place] [id number] HAYDEE DALE MD NEUROLOGY [facility] [address] [place] [address] 02/13/2018 08:34:50 02/13/2018 09:59:07 Essential tremor 488391612 G25.0 Well controlled on low dose primadone 50 mg bidtight control over BP- check CBC, LFTs- recommend he follow with PCP annually and PRN- I will see him back in 1 year CC: Gifty Dejesus MD,RT Patel Obstructiv e sleep apnea of adult 8362036339 103 G47.33 PMH sleep apnea, s/p uvulectomy and sinus surgery for deviated septum; now snoring loudly again and ESS 14 He is just a little overweight , not obese, but certainly, may benefit from weight loss - will obtain repeat sleep study Acquired d eviated nasal septum 61164099 J34.2 s/p surgery; pending results of sleep study, may send him back to ENT to see if surgical versus just tx with CPAP [id number] HAYDEE DALE MD NEUROLOGY [facility] [address] [place] [address] 02/20/2019 08:33:23 02/20/2019 09:52:55 Essential tremor 493972120 G25.0 Well controlled on low dose primadone 50 mg bidBP is good today; not on medication - follow CBC, LFTs- again, recommend he follow at least annually with PCP- I will see him back in 1 year CC: Gifty Dejesus MD,TR Patel Obstructiv e sleep apnea of adult 8755415686 103 G47.33 PMH sleep apnea, s/p uvulectomy and sinus surgery for deviated septum; now snoring loudly again and ESS 14 He is just a little overweight , not obese, but certainly, may benefit from weight loss - will obtain repeat sleep study Acquired d eviated nasal septum 91761987 J34.2 s/p surgery; pending results of sleep study, may send him back to ENT to see if surgical versus just tx with CPAP Excessive daytime sleepiness - normal night sleep 287373120 G47.19 will check CBC, CMP, TSH, B12 and vit D will again request repeat sleep study [id number] [facility] [address] [place] [address] 04/01/2019 15:33:25 04/01/2019 15:35:05 [id number] HAYDEE DALE MD NEUROLOGY [facility] [address] [place] [address] 02/18/2020 14:02:05 02/18/2020 16:20:32 Essential tremor 883565611 G25.0 Well controlled on low dose primadone [...] > 50% in counseling CC: Gifty Dejesus MD,TR Patel Obstructiv e sleep apnea of adult 1290213894 103 G47.33 PMH sleep apnea, s/p uvulectomy and sinus surgery for deviated septum; now snoring loudly again and ESS 14 AHI 9.7 (non-supin e 0.7, supine 29.9) --- I've advised that he sew a tennis ball into the back of his sleep shorts [id number] HAYDEE DALE MD NEUROLOGY [facility] CLOSED [address] [place] [address] 08/17/2020 08:43:48 08/17/2020 10:11:38 Essential tremor 492406464 G25.0 Well controlled on low dose primidone [...] TR Obstructiv e sleep apnea of adult 5442147011 103 G47.33 PMH sleep apnea, s/p uvulectomy and sinus surgery for deviated septum; now snoring loudly again and ESS 14 AHI 9.7 (non-supin e 0.7, supine 29.9) --- Helping with tennis ball into the back of his sleep shorts 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 He also has some nighttime drooling, occasional poem writer's cramp and exam noting slight decrease in [...] if above ineffectiv e, will try Keppra. [id number] YOGESH BEAR MD NEUROLOGY CLOSED [address] [place] [address] 1 12/13/2021 10:41:08 12/13/2021 12:18:34 Essential tremor 346311921 G25.0 Poor short -term memory 515393976 R41.3 [id number] YOGESH BEAR MD NEUROLOGY [facility] [address] [place] [address] 1 07/20/2022 09:55:32 07/20/2022 10:59:16 Essential tremor 215779263 G25.0 [id number] YOGESH BEAR MD NEUROLOGY CLOSED [address] [place] [address] 1 07/20/2023 10:00:45 07/20/2023 11:03:49 Essential tremor 456331428 G25.0 [id number] YOGESH BEAR MD NEUROLOGY [address] [place] [address] 01/17/2025 09:31:55 01/17/2025 10:04:09 Essential tremor 995619404 G25.0 Health Concerns Section Related Observation LastModified by Organization Detai ls LastModified Time None Recorded Concern Status LastModified by Organization Details LastModified Time None Recorded Advance Directives Directive None Recorded Payers Insurance Date Sequence Insurance Name Policy Number Policy Zurita Covered Member ID Zurita Member ID Guarantor Name 01/17/2025 1 [place] [employer]UID[employer] [place] - PATHWAY X (HMO) [id number] Zackary Matamoros [id number] Zackary Matamoros 01/17/2025 1 [place] [id number] Zackary Matamoros [id number] Zackary Matamoros 01/17/2025 1 [place] Zackary Matamoros [id number] Zackary Matamoros 01/21/2025 2 [employer] [place] (MEDICARE SUPPLEMENT) Zackary Matamoros [id number] Zackary Matamoros Notes Date Note Type Note [...] up with pillow wet sometimes. He gets poem writer's cramp now and then. No RLS. No [...] to see her often, she lives up [facility]. No known tremor in either parents. His younger sister w/o tremor. He has had concussion with brief LOC about 20 years ago when he feel in the basement hit concrete. Primidone SE of low sex drive have improved on the lower dose. 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 stays active.no problems driving or directions.No family h/o dementia.had head injury in 2003.sleeps well.he has had surgery for SOLOMON YOGESH BEAR MD [facility] [place], [address], [facility] 12/13/2021 15:41:13 07/20/2022 text/html He was seen [...] ago. not o/w ill. YOGESH BEAR MD [address] [place], [address], [facility] 07/20/2022 10:56:43 07/20/2023 text/html He was seen a year ago.He is doing well still.If he is very tired, he may notice tremor in the hands.Otherwise he is not bothered. 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 not o/w ill does not take any other meds. YOGESH BEAR MD [address] [place], [address], [facility] 07/20/2023 11:03:25 01/17/2025 text/html He was seen early last year. Doing well still. If he is very tired, he may notice tremor in the hands.Otherwise he is not bothered. 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 YOGESH BEAR MD [address] [place], [address], [facility] 01/17/2025 10:03:49
--- OUTSIDE RECORDS SUMMARY | 2025-05-29 07:19 | XMS_ITS | Encounter Summary ---
Author Organization [place] [address] Care Team Providers Care Nibbler Operator Name Role Phone Carly Tomas Primary Care Provider Encounter Details Date Type Department Care Team (Late st Contact Info) Description 11/09/2015 Orders Only SEP Gastro [facility] [address] [facility] [address] [place] [address] Kwaku Rogers DO [address] [facility] [address] [place] [address] Social History Tobacco Use Types Packs/Day Years [...] AM EDT) 11/09/2015 7:30 AM EDT Impressions [facility] - 11/09/2015 7:56 AM EDT Normal mucosa in the terminal ileum. Polyp (1.2 cm) in the cecum. (Polypectomy). Polyp in the sigmoid colon. (Polypectomy). Hemorrhoids. Plan: Colonoscopy in 3 years. This section is an excerpt of the full report. us Kwaku Rogers DO GI PROCEDURE ORDERABLES F inal Result [facility] [address] [place] [address] documented in this encounter Visit Diagnoses Not on filedocumented in this encounter Care Teams Nibbler Operator Relationship Specialty Start Date End Date Carly Tomas [address] [facility] [address] [place] [id number] PCP - General Family Medicine 11/09/15 documented as of this encounter
--- OUTSIDE RECORDS SUMMARY | 2025-05-29 07:19 | XMS_ITS | Encounter Summary ---
Author Organization [place] [address] Care Team Providers Care Deep Well Contractor Name Role Phone Carly Tomas Primary Care Provider [phone] Encounter Details Date Type Department Care Team (Late st Contact Info) Description 05/07/2021 Orders Only SEP Gastro [facility] [address] [facility] [address] [place] [address] Petty Lanza MD [address] [place] [id number] Social History Tobacco Use Types Packs/Day Years [...] AM EDT) 05/07/2021 7:00 AM EDT Impressions [facility] - 05/07/2021 7:37 [...] ORDERAB LES Final Result Performing Organization Address City/State/[facility] Co de Phone Number [facility] [address] [place] [address] documented in this encounter Visit Diagnoses Not on filedocumented in this encounter Care Teams Deep Well Contractor Relationship Specialty Start Date End Date Carly Tomas [address] [facility] [address] [place] [address] PCP - General Family Medicine 11/09/15 documented as of this encounter
--- OUTSIDE RECORDS SUMMARY | 2025-05-29 07:19 | XMS_ITS ---
Author Organization Unknown TREATMENT PLAN [facility] Start Date Provider Encounter for Check-up [id number] [facility]
--- OUTSIDE RECORDS SUMMARY | 2025-05-29 07:19 | XMS_ITS | Clinical Summary ---
Author Organization [facility] [place] Address [address] [facility] [address] [place] [address] Phone Care Team Providers Care Supervisor Steno Pool Name Role Phone Carly Tomas Primary Care Provider Medications sodium,potassiu m,mag sulfates 17.5-3.13-1.6 gram Oral [...] AM EDT) 05/07/2021 7:00 AM EDT Impressions [facility] - 05/07/2021 7:37 AM EDT Polyp [...] ORDERAB LES Final Result Performing Organization Address City/State/[facility] Co de Phone Number [facility] [address] [place] [address] from Last 3 Months or Most Recently Relevant to Health Maintenance Insurance PPO RICHARD PPO Care Teams Supervisor Steno Pool Relationship Specialty Start Date End Date Carly Tomas [address] [facility] [address] [place] [address] PCP - General Family Medicine 11/09/15
--- OUTSIDE RECORDS SUMMARY | 2025-05-29 07:19 | XMS_ITS | Encounter Summary ---
Author Organization [place] [address] Care Team Providers Care District Operations Manager Name Role Phone Carly Tomas Primary Care Provider [phone] Encounter Details Date Type Department Care Team (Late st Contact Info) Description 05/07/2021 Lab Requisition [facility] [place] [address] Petty Lanza MD [address] [place] [address] Personal history of colonic polyps; [...] AM EDT) CASE REPORT Surgical Pathology Case: [id number] Authorizing Provider: Petty Lanza, Collected: 05/07/2021 0737 Ordering Location: [facility] Received: 05/07/2021 7937 Pathologist: Munir Eaton MD Specimens: A) - Large Intestine, Cecum B) - Large Intestine, Transverse Colon C) - Large Intestine, Sigmoid Colon 05/15/2021 1:51 PM EDT [facility] FINAL DIAGNOSIS A. Cecum, polyp, biopsy: - Fragments of sessile serrated adenoma B. Transverse colon, polyp, biopsy: - Fragments of sessile serrated adenoma. C. Sigmoid colon, polyp, biopsy: - Tubular adenoma. 05/15/2021 1:51 PM EDT [facility] at 1351 EDT COMMENT Additional deeper level sections are performed and evaluated on Part C. 05/15/2021 1:51 PM EDT [facility] GROSS DESCRIPTION A. Part A [...] 05/07/2021 5:04 PM 05/15/2021 1:51 PM EDT [facility] MICROSCOPIC DESCRIPTION Microscopic examination is performed and the findings corroborate the diagnosis. 05/15/2021 1:51 PM EDT [facility] EMBEDDED IMAGES 05/15/2021 1:51 PM EDT [facility] Tissue SIGMOID COLON STRUCTURE / Unknown 05/07/2021 7:37 AM EDT 05/07/2021 4:56 PM EDT Tissue specimen (specimen) TRANSVERSE COLON STRUCTURE / Unknown 05/07/2021 7:37 AM EDT 05/07/2021 4:56 PM EDT Tissue specimen (specimen) SIGMOID COLON STRUCTURE / Unknown 05/07/2021 7:37 AM EDT 05/07/2021 4:56 PM EDT us Petty Lanza MD PATHOLOGY ORDERABLES Final Result [facility] [address] [place] [address] documented in this encounter Visit Diagnoses Diagnosis Personal history of colonic polyps Polyp of colon Benign neoplasm of colon Diverticulosis of large intestine without perforation or abscess without bleeding Diverticulosis of colon (without mention of hemorrhage) documented in this encounter Care Teams District Operations Manager Relationship Specialty Start Date End Date Carly Tomas [address] [place] [address] PCP - General Family Medicine 11/09/15 documented as of this encounter
--- NOTE | 2025-05-29 07:30 | NM_ITS ---
APPROVED REPORT Exam: Nuclear Stress Test Indication: fatigue..dizziness..abn ecg Patient Location: Outpatient Stress Tech: Mary Lou Montero [place] Tech:Candida ChavezDOMITILA RT(R)(N) Ht: 5 ft 8 in Wt: 170 lbs HR: 60 bpm BP: 138/80 mmHg BSA: 1.91 m2 TID: 1.12 BMI: 25.8 History: fatigue..dizziness..abn ecg Procedure: Patient exercised on Magdiel protocol 10:01 minutes and sec, resting heart rate 60 bpm, resting blood pressure 138/80 mmHg, with exercise maximum heart rate achived was 136 bpm which is 88 % of the maximum predicted heart rate and blood pressure was 170/80 mmHg. Test was stopped due to fatigue. Patient denied any complaint of chest pain. Patient has average exercise capacity, achieved 12.1 METs of workload on treadmill, the blood pressure response to exercise was normal . Cardiac Stress and Resting SPECT Images: Cardiac Stress and Resting SPECT images were obtained using technetium 99m Myoview 32.9 mCi stress and 10.91 mCi at rest. Resting and stress imaging in supine and prone positions demonstrate a medium sized, moderate, fixed perfusion defect in the anterior wall. There is also medium sized, moderate, reversible perfusion defect in the basal to mid inferior LV wall. Gated imaging demonstrates mild reduction in global LV systolic function. LVEF is calculated at 46%. Conclusion: Medium sized, moderate, fixed perfusion defect in the anterior wall. There is also medium sized, moderate, reversible perfusion defect in the basal to mid inferior LV wall. Findings are suggestive of reversible ischemia. Gated imaging demonstrates mild reduction in global LV systolic function. LVEF is calculated at 46%. Electronically signed by : Payton Rios MD 05/29/2025 15:20:43
[2025-05-29 09:14] VITALS: BP 138/80; BP 170/80; PULSE 64; RESP 14
[2025-05-29] MEDS: ISOTOPE MYOVIEW (PER STUDY) 1 DOSE IV (10:10)
[2025-05-29] MEDS: SODIUM CHLORIDE 0.9% 10ML SYR (RAD ONLY) 10 ML IV ×2 (10:11)
== END 2025-05-29 23:59 | disposition home or self-care (01) ==
LOC: RAD 07:17
PROVIDERS: PCP Family Medicine; Visit Provider Physician Assistant
DX: I49.3 Ventricular premature depolarization (principal); R94.39 Abnormal result of other cardiovascular function study; R94.31 Abnormal electrocardiogram [ECG] [EKG]; R53.83 Other fatigue; R42 Dizziness and giddiness
CPT/HCPCS: 78452; 93017; 93018; A9502

== ENCOUNTER 2025-06-04 10:05 | Day surgery (SDC) | payer MEDICARE, OTHER, SELFPAY ==
[2025-06-04] VITALS (11 sets, daily range): BP systolic 118–145; BP diastolic 60–84; PULSE 55–68; RESP 18–20; TEMP 36.6; O2SAT 91–99; BMI 25.4
--- NOTE | 2025-06-04 07:11 | IR_ITS ---
APPROVED REPORT Patient Location: Outpatient PROCEDURES Left heart catheterization Left ventriculogram Selective coronary angiogram INDICATION Abnormal Myoview Informed consent was obtained prior to the procedure. COMPLICATIONS NONE Estimated Blood Loss: LESS THAN 10 ML TECHNIQUE One percent lidocaine used to anesthetize the right anterior aspect of the wrist. The right radial artery was accessed via the Seldinger technique. A 6 Khmer sheath was placed in the right radial artery. 2.5 mg of Verapamil, 800 mcg of nitroglycerin, 1mg Lidocaine and 5000 U Heparin were given through the arterial sheath. The JL3 catheter was also used to perform left heart catheterization, left ventriculogram and selective coronary angiogram. At the end of the procedure the sheath was removed good hemostasis was achieved using Traclet band, patient was transferred to the postop holding area in stable condition. ANGIOGRAPHIC RESULTS The left main artery Normal The left anterior descending artery Normal The circumflex artery Normal The right coronary artery Dominant normal The LOPEZ ventriculogram reveals Normal 65% The left ventricular end-diastolic pressure 10 mmHg IMPRESSION Normal coronary arteries Normal ejection fraction Normal LVEDP PLAN 1. Evaluation of noncardiac symptoms Electronically signed by : Hawk Hernandez MD 06/04/2025 12:52:54
[2025-06-04 10:22] LABS: Hematocrit 39.8 % (42.0-52.0); Hemoglobin 13.4 g/dL (14.1-18.0); Immature Granulocytes % 0.3 %; Mean Corpuscular HGB Conc 33.7 g/dL (31.8-35.4); Mean Corpuscular Hemoglobin 31.3 pg (27.0-31.2); Mean Corpuscular Volume 93.0 fl (80-94); Nucleated Red Blood Cells % 0 %; Platelet Count 209 K/mm3 (142-424); Red Blood Count 4.28 M/mm3 (4.60-6.20); Red Cell Distribution Width-SD 46.5 fL; White Blood Count 6.1 K/mm3 (4.8-10.8)
[2025-06-04 10:30] LABS: Chloride 105 mmol/L (98-107); Potassium 4.7 mmoL/L (3.5-5.1); Sodium 140 mmol/L (136-145)
[2025-06-04 10:33] LABS: Anion Gap 10.7 mEq/L (5-15); Blood Urea Nitrogen 14 mg/dl (9-20); Calcium 8.8 mg/dl (8.4-10.2); Carbon Dioxide 29 mmol/L (22.0-30.0); Creatinine Clearance Estimated 77 mL/min (50-200); Creatinine,Serum 1.00 mg/dl (0.66-1.25); Estimated Glomerular Filt Rate 75 ml/min (>60); GFR (African American) 90 ML/MIN (>60); Glucose 94 mg/dl (74-100)
[2025-06-04] MEDS: 0.9 % SODIUM CHLORIDE 500 ML 150 ML IV (12:26)
[2025-06-04] MEDS: LIDOCAINE 1% 10ML MDV 10 ML IJ (12:26)
[2025-06-04] MEDS: VERAPAMIL 2.5MG/ML 2ML VIAL 2.5 MG IV (12:26)
[2025-06-04] MEDS: NITROGLYCERIN 800MCG/8ML SYR (CATH LAB) 800 MCG IA (12:26)
[2025-06-04] MEDS: HEPARIN 1,000 UNITS/ML 10ML VIAL (CATH LAB) 5000 UNIT IV (12:27)
[2025-06-04] MEDS: HEPARIN 1,000 UNITS/500ML NS (CATH LAB) 3000 UNIT IV (12:27)
[2025-06-04] MEDS: FENTANYL 100MCG/2ML VIAL 50 MCG IV (12:42)
[2025-06-04] MEDS: MIDAZOLAM HCL 1MG/ML 5ML VIAL 1 MG IV (12:42)
== END 2025-06-04 15:42 | disposition home or self-care (01) ==
LOC: CATHLAB 10:06
PROVIDERS: PCP Family Medicine; Visit Provider Internal Medicine
PROC: 4A023N7 Measurement of Cardiac Sampling and Pressure, Left Heart, Percutaneous Approach (ICD-10-PCS; CPT 93452; principal; 2025-06-04 11:15)
DX: R94.39 Abnormal result of other cardiovascular function study (principal); I45.10 Unspecified right bundle-branch block; R42 Dizziness and giddiness; R06.02 Shortness of breath; Z79.51 Long term (current) use of inhaled steroids; Z79.52 Long term (current) use of systemic steroids; Z79.899 Other long term (current) drug therapy; Z88.1 Allergy status to other antibiotic agents; Z88.5 Allergy status to narcotic agent; Z88.8 Allergy status to other drugs, medicaments and biological substances
CPT/HCPCS: 36415; 80048; 85025; 93458; 99152; C1769; C1887; J1200; J1644; J2003; J3010; J7040; Q9967